=== PATIENT | male | born 1955 | race Caucasian/White ===

== ENCOUNTER 2017-04-10 21:01 | Observation (INO) | payer MEDICARE, MEDICAID ==
[~2017-04-10] VITALS: Ht 180.3 cm; Wt 95.5 kg
[~2017-04-10 21:01] MED LIST: ABIL5TAB6 PO; AMLO10 PO; BISA10R PR; CEFT2INJ IV; CHLOR25 PO; HYDR100T2 PO; LEXA10TA PO; ONDA4 PO; PANT20 PO; PHEN12.5 PO; PRAV20 PO; PROM25R PR; SENN-29 PO; SULF-154 PO; VITA200017 PO
[2017-04-10 21:03] VITALS: BP 190/82; PULSE 58; RESP 20; TEMP 98.7; O2SAT 98
--- NOTE | 2017-04-10 21:28 | PD ---
HPI Chief Complaint: vomiting Time Seen by Provider: 21:22 Travel History International Travel<30 days: No Contact w/Intl Traveler<30days: No History of Present Illness HPI Patient comes in by EMS from [facility] for reported nausea and vomiting per transfer form. EMS reported 3 coffee ground emesis en route. Patient states he's been vomiting for the past couple days. Patient denies any known blood in it. Denies any loss change in bowel or bladder. Patient complaining of epigastric abdominal pain is sharp like in nature without radiation. Patient denies anything making this better or worse. Patient denies anything like this in the past however was noted to have been here an March 2016 for similar. Patient is a poor historian thus limiting history of present illness. Patient has a history of peripheral vascular disease, type 2 diabetes, dementia, hypertension, bipolar, anemia, chronic kidney disease, hyperlipidemia, anxiety, schizophrenia, and muscle weakness. PFSH Past Medical History Anemia: Yes Bipolar Disorder: Yes Anxiety: Yes Depression: No Cancer: No Cardiovascular Problems: Yes (HYPERTENSION) Diabetes: Yes Endocrine: Yes Gastrointestinal Disorders: Yes (HX OF GI BLEEDS) GERD: No Genitourinary: No Hypertension: Yes Immune Disorder: No Musculoskeletal: No Neurologic: No Psychiatric: Yes (DENIES-PER H&P SCHIZOPHRENIA, BIPOLAR, AND ANXIETY) Reproductive: No Respiratory: No Schizophrenia: Yes Thyroid Disease: No Social History Alcohol Use: Yes (OCCASIONALLY) Tobacco Use: No Substance Use: No Allergies-Medications (Allergen,Severity, Reaction): Coded Allergies: *MDRO Multi-Drug Resistant Organism (Verified Adverse Reaction, Unknown, ) MRSA (urine) - 04/12/16 Reported Meds & Prescriptions Reported Meds & Active Scripts Active Reported Promethazine Supp (Promethazine HCl) 25 Mg Supp 25 Mg RECTAL Q8HR PRN Norvasc (Amlodipine Besylate) 10 Mg Tab 10 Mg PO DAILY Lexapro (Escitalopram Oxalate) 10 Mg Tab 10 Mg PO DAILY Senna-Tabs (Sennosides) 8.6 Mg Tab 8.6 Mg PO HS Protonix (Pantoprazole Sodium) 40 Mg Tab 40 Mg PO DAILY Hydralazine HCl 25 Mg Tablet 100 Mg PO TID D-2000 Maximum Strength (Cholecalciferol) 2,000 Unit Tab 4,000 Units PO DAILY Abilify (Aripiprazole) 2 Mg Tab 2.5 Mg PO DAILY Review of Systems ROS Limitations: Poor Historian Except as stated in HPI: all other systems reviewed are Neg Physical Exam Exam Limitations: Poor Historian Narrative GENERAL: Well-developed, well nourished, in no acute distress, and non-ill appearing. SKIN: Focused skin assessment warm and dry. HEAD: Atraumatic. Normocephalic. EYES: Pupils equal and round. EOMI. No scleral icterus. No injection or drainage. ENT: No nasal bleeding or discharge. Mucous membranes pink and moist. NECK: Trachea midline. Supple. No nuclear rigidity. CARDIOVASCULAR: Regular rate and rhythm. No murmur appreciated. RESPIRATORY: No accessory muscle use. No respiratory distress. Clear to auscultation. Breath sounds equal bilaterally. GASTROINTESTINAL: Abdomen soft, nondistended, and no guarding. Hepatic and splenic margins not palpable. Hypoactive bowel sounds 4. No pulsatile mass. Patient reports tenderness to palpation left lower quadrant and is palpable fecal debris. MUSCULOSKELETAL: No clubbing. No cyanosis. No edema. Patient moving bilateral upper extremities without difficulty. NEUROLOGICAL: Awake and alert. No obvious cranial nerve deficits. Motor grossly within normal limits. Normal speech. PSYCHIATRIC: Appropriate mood and affect. Data Data Last Documented VS Vital Signs Date Time Temp Pulse Resp B/P (MAP) Pulse Ox O2 Delivery O2 Flow Rate FiO2 04/11/17 00:11 58 18 157/68 (97) 100 Room Air 04/10/17 21:03 98.7 Orders Orders Complete Blood Count With Diff (04/10/17 21:17) Comprehensive Metabolic Panel (04/10/17 21:17) Lipase (04/10/17 21:17) Prothrombin Time / Inr (Pt) (04/10/17 21:17) Act Partial Throm Time (Ptt) (04/10/17 21:17) Urinalysis - C+S If Indicated (04/10/17 21:17) Type And Screen (04/10/17 21:17) Chest, Single Ap (04/10/17 21:17) Ecg Monitoring (04/10/17 21:17) Iv Access Insert/Monitor (04/10/17 21:17) Oximetry (04/10/17 21:17) Sodium Chloride 0.9% Flush (Ns Flush) (04/10/17 21:30) Pantoprazole Inj (Protonix Inj) (04/10/17 21:30) Pantoprazole Inj (Protonix Inj) (04/10/17 21:30) Ct Abd/Pel W/O Iv Contrast (04/10/17 ) NPO (04/10/17 21:17) Electrocardiogram (04/10/17 21:17) Ondansetron Inj (Zofran Inj) (04/10/17 22:00) Ondansetron Inj (Zofran Inj) (04/10/17 21:50) Bedside Glucose HEATHER.AC&HS (04/10/17 23:56) Blood Glucose Goal (Criteria) (04/10/17 23:56) Hypoglycemia 70 Mg/Dl Or < (04/10/17 23:56) Notify Dr: Other (04/10/17 23:56) Dextrose 50% In Monster (Vial) Inj (D50w (Vi (04/11/17 00:00) Glucagon Inj (Glucagon Inj) (04/11/17 00:00) Insulin Aspart Supplemtl Scale (Novolog (04/11/17 07:00) Place In Observation (04/10/17 ) Vital Signs (Adult) Q4H (04/10/17 23:56) Activity Oob With Assistance (04/10/17 23:56) Intake + Output HEATHER.QSHIFT (04/10/17 23:56) Sodium Chlor 0.9% 1000 Ml Inj (Ns 1000 M (04/10/17 23:56) Sodium Chloride 0.9% Flush (Ns Flush) (04/11/17 00:00) Sodium Chloride 0.9% Flush (Ns Flush) (04/11/17 09:00) Ondansetron Inj (Zofran Inj) (04/11/17 00:00) Comprehensive Metabolic Panel (04/11/17 06:00) Complete Blood Count With Diff (04/11/17 06:00) Case Management Consult (04/10/17 23:56) Scd Bilateral/Knee High HEATHER.BID (04/10/17 23:56) Colin Bilateral/Knee High HEATHER.QSHIFT (04/10/17 23:56) Acetaminophen (Tylenol) (04/11/17 00:00) Acetamin-Hydrocod 325-5 Mg (Barco 5-325 (04/11/17 00:00) Morphine Inj (Morphine Inj) (04/11/17 00:00) Docusate Sodium-Senna (Renetta-Colace) (04/11/17 09:00) Magnesium Hydroxide Liq (Milk Of Magnesi (04/11/17 00:00) Sennosides (Senokot) (04/11/17 00:00) Bisacodyl Supp (Dulcolax Supp) (04/11/17 00:00) Lactulose Liq (Lactulose Liq) (04/11/17 00:00) Diet 1800 Ada Cons Carb (04/11/17 Breakfast) Admit Order (Ed Use Only) (04/11/17 00:36) Labs Laboratory Tests Test 04/10/17 21:30 White Blood Count 9.4 TH/MM3 Red Blood Count 4.16 MIL/MM3 Hemoglobin 10.8 GM/DL Hematocrit 32.9 % Mean Corpuscular Volume 79.3 FL Mean Corpuscular Hemoglobin 26.1 PG Mean Corpuscular Hemoglobin Concent 32.9 % Red Cell Distribution Width 16.1 % Platelet Count 166 TH/MM3 Mean Platelet Volume 9.6 FL Neutrophils (%) (Auto) 88.3 % Lymphocytes (%) (Auto) 5.6 % Monocytes (%) (Auto) 5.9 % Eosinophils (%) (Auto) 0.0 % Basophils (%) (Auto) 0.2 % Neutrophils # (Auto) 8.3 TH/MM3 Lymphocytes # (Auto) 0.5 TH/MM3 Monocytes # (Auto) 0.6 TH/MM3 Eosinophils # (Auto) 0.0 TH/MM3 Basophils # (Auto) 0.0 TH/MM3 CBC Comment DIFF FINAL Differential Comment Prothrombin Time 11.7 SEC Prothromb Time International Ratio 1.1 RATIO Activated Partial Thromboplast Time 25.8 SEC Blood Urea Nitrogen 41 MG/DL Creatinine 2.63 MG/DL Random Glucose 172 MG/DL Total Protein 7.6 GM/DL Albumin 4.1 GM/DL Calcium Level 11.4 MG/DL Alkaline Phosphatase 96 U/L Aspartate Amino Transf (AST/SGOT) 13 U/L Alanine Aminotransferase (ALT/SGPT) 15 U/L Total Bilirubin 0.6 MG/DL Sodium Level 137 MEQ/L Potassium Level 4.0 MEQ/L Chloride Level 104 MEQ/L Carbon Dioxide Level 24.4 MEQ/L Anion Gap 9 MEQ/L Estimat Glomerular Filtration Rate 25 ML/MIN Lipase 97 U/L MDM Medical Decision Making Medical Screen Exam Complete: Yes Emergency Medical Condition: Yes Medical Record Reviewed: Yes Interpretation(s) EKG reviewed by Dr. Zuleta sinus rhythm with sinus arrhythmia. Ventricular rate of 60. No STEMI. Differential Diagnosis GI bleed, ileus, bowel obstruction, abdominal pain, intractable vomiting, aspiration pneumonia, electrolyte abnormality, other Narrative Course Patient was seen and examined. Initial laboratory neurological studies were ordered. Patient was given IV Zofran for nausea and started on Protonix. Patient signed out to Dr. Zuleta at the end of my shift. Please see her documentation for final diagnosis and disposition. HemaPrompt Point of Care Internal Pos. & Neg. Controls: Passed Fecal Specimen Occult Blood: Negative Gastric Specimen Occult Blood: Positive Comment Verbal consent was obtained. Digital rectal exam was performed. Stool specimen applied and test interpreted between 1 and 3 minutes of application and the result was negative. Internal Controls: Both positive and negative controls were validated. Staff Jeremiah Bernard was present during this exam. Vladimir Ascencio Apr 10, 2017 21:28
[2017-04-10] MEDS ORDERED: PANTOPRAZOLE INJ 80 MG in SODIUM CHLORIDE 0.9% INJ 35 ML IV ONE (21:30)
[2017-04-10] MEDS ORDERED: SODIUM CHLORIDE 0.9% FLUSH 10 ML FLUSH IVF PRN (21:30)
[2017-04-10] MEDS ORDERED: ONDANSETRON HCL 4 MG/2 ML VIAL ONE (21:50)
--- NOTE | 2017-04-10 21:55 | RADRPT ---
EXAM DATE/TIME: 04/10/2017 21:40 [facility] COMPARISON: CHEST SINGLE AP, April 12, 2016, 10:33. INDICATIONS : Shortness of breath and vomiting. MEDICAL HISTORY : None. SURGICAL HISTORY : None. ENCOUNTER: Initial ACUITY: 1 day PAIN SCORE: 0/10 LOCATION: chest FINDINGS: The lungs are clear without infiltrate, nodule, or mass. There is no appreciable pleural effusion fo r technique. Heart and mediastinum are unremarkable. CONCLUSION: No acute cardiopulmonary disease. Honey [place] MD on April 10, 2017 at 21:53 Board Certified Radiologist. This report was verified electronically.
[2017-04-10] MEDS ORDERED: ONDANSETRON HCL 4 MG/2 ML VIAL IV PUSH ONE (22:00)
[2017-04-10 22:01] LABS: AUTOMATED NEUTROPHIL # 8.3 TH/MM3 (1.8-7.7); BASOPHIL % 0.2 % (0.0-2.0); HEMATOCRIT 32.9 % (39.0-51.0); HEMO FLAGS DIFF FINAL; LYMPH % 5.6 % (9.0-44.0); LYMPHOCYTE # 0.5 TH/MM3 (1.0-4.8); MEAN CELL VOLUME 79.3 FL (80.0-100.0); MEAN CORPUSCULAR HEMOGLOBIN 26.1 PG (27.0-34.0); MEAN CORPUSCULAR HGB CONC 32.9 % (32.0-36.0); MONO % 5.9 % (0.0-8.0); NEUT % 88.3 % (16.0-70.0); PLATELET COUNT 166 TH/MM3 (150-450); RED BLOOD COUNT 4.16 MIL/MM3 (4.50-5.90); RED CELL DISTRIBUTION WIDTH 16.1 % (11.6-17.2); WHITE BLOOD COUNT 9.4 TH/MM3 (4.0-11.0)
[2017-04-10 22:10] LABS: APTT (PATIENT) 25.8 SEC (24.3-30.1); INTERNATIONAL NORMALIZED RATIO 1.1 RATIO; PROTHROMBIN TIME - PATIENT 11.7 SEC (9.8-11.6)
[2017-04-10 22:15] LABS: ANION GAP 9 MEQ/L (5-15); AST (GOT) 13 U/L (15-37); BICARBONATE 24.4 MEQ/L (21.0-32.0); BLOOD UREA NITROGEN 41 MG/DL (7-18); CHLORIDE 104 MEQ/L (98-107); GLOMERULAR FILTRATION RATE 25 ML/MIN (>89); SODIUM (NA) 137 MEQ/L (136-145)
[2017-04-10 22:17] LABS: ALT (GPT) 15 U/L (12-78)
[2017-04-10 22:19] LABS: ALKALINE PHOSPHATASE 96 U/L (45-117); TOTAL BILIRUBIN ADULT 0.6 MG/DL (0.2-1.0)
[2017-04-10] MEDS: PANTOPRAZOLE INJ 80 MG in SODIUM CHLORIDE 0.9% INJ 100 ML IV SCH (22:44)
--- NOTE | 2017-04-10 23:42 | RADRPT ---
EXAM DATE/TIME: 04/10/2017 23:12 [facility] COMPARISON: No previous studies available for comparison. INDICATIONS : Dark emesis x 3-4 today. ORAL CONTRAST: No oral contrast ingested. RADIATION DOSE: 8.60 CTDIvol (mGy) MEDICAL HISTORY : Diabetes mellitus type 2. Hypertension. Cardiovascular diseaseGI bleed. SURGICAL HISTORY : None. ENCOUNTER: Initial ACUITY: 1 day PAIN SCALE: 4/10 LOCATION: Bilateral abdomen TECHNIQUE: Volumetric scanning of the abdomen and pelvis was performed. Using automated exposure control and ad justment of the mA and/or kV according to patient size, radiation dose was kept as low as reasonably achievable to obtain optimal diagnostic quality images. DICOM format image data is available electro nically for review and comparison. FINDINGS: LOWER LUNGS: The visualized lower lungs are clear. Very small pericardial effusion anteriorly measuring approximat naomi 1 cm in depth. LIVER: Homogeneous density without lesion. There is no dilation of the biliary tree. No calcified gallston es. SPLEEN: Normal size without lesion. PANCREAS: Within normal limits. KIDNEYS: Normal in size and shape. Bilateral, multiple nonobstructing renal calculi measuring upwards at 7 mm in diameter. Dominant, 7.4 cm cyst anteriorly off the midpole of the left kidney. ADRENAL GLANDS: Within normal limits. VASCULAR: There is no aortic aneurysm. BOWEL/MESENTERY: Diverticular disease of the sigmoid without diverticulitis. Marked distention of the rectal vault wit h stool characteristic of fecal impaction. The vermiform appendix is identified and is radiographical ly normal. ABDOMINAL WALL: Within normal limits. RETROPERITONEUM: There is no lymphadenopathy. BLADDER: No wall thickening or mass. REPRODUCTIVE: Within normal limits. INGUINAL: There is no lymphadenopathy or hernia. MUSCULOSKELETAL: Hypodensity centrally at the musculotendinous junction of the iliacus and psoas muscles on the right. Bilateral pars fractures at L5. CONCLUSION: 1. Very small, anteriorly positioned pericardial effusion measuring 1 cm in depth. 2. Bilateral nonobstructing multiple renal calculi measuring up to 7 mm in diameter. 3. CT findings characteristic of rectal fecal impaction with a large amount of stool in the distended rectal vault. 4. Bilateral pars fractures at L5. 5. Central hypodensities at the musculotendinous junction of the iliacus and psoas muscles on the rig ht. Findings are nonspecific. Is there a recent history of trauma? If patient is diabetic, could cons ider muscular infarction. Brian Laguerre MD on April 10, 2017 at 23:31 Board Certified Radiologist. This report was verified electronically.
--- NOTE | 2017-04-10 23:50 | PD ---
Physical Exam Date Seen by Provider: Apr 10, 2017 Narrative This patient is a jail patient who is being evaluated for vomiting with reported coffee-ground emesis. Abdomen is diffusely tender with no guarding or rebound. Data Data Last Documented VS Vital Signs Date Time Temp Pulse Resp B/P Pulse Ox O2 Delivery O2 Flow Rate FiO2 04/10/17 21:36 Room Air 04/10/17 21:03 98.7 58 20 190/82 98 Orders Complete Blood Count With Diff (04/10/17 21:17) Comprehensive Metabolic Panel (04/10/17 21:17) Lipase (04/10/17 21:17) Prothrombin Time / Inr (Pt) (04/10/17 21:17) Act Partial Throm Time (Ptt) (04/10/17 21:17) Urinalysis - C+S If Indicated (04/10/17 21:17) Type And Screen (04/10/17 21:17) Chest, Single Ap (04/10/17 21:17) Ecg Monitoring (04/10/17 21:17) Iv Access Insert/Monitor (04/10/17 21:17) Oximetry (04/10/17 21:17) Sodium Chloride 0.9% Flush (Ns Flush) (04/10/17 21:30) Pantoprazole Inj (Protonix Inj) (04/10/17 21:30) Pantoprazole Inj (Protonix Inj) (04/10/17 21:30) Ct Abd/Pel W/O Iv Contrast (04/10/17 ) NPO (04/10/17 21:17) Electrocardiogram (04/10/17 21:17) Ondansetron Inj (Zofran Inj) (04/10/17 22:00) Ondansetron Inj (Zofran Inj) (04/10/17 21:50) Labs Laboratory Tests Test 04/10/17 21:30 White Blood Count 9.4 TH/MM3 Red Blood Count 4.16 MIL/MM3 Hemoglobin 10.8 GM/DL Hematocrit 32.9 % Mean Corpuscular Volume 79.3 FL Mean Corpuscular Hemoglobin 26.1 PG Mean Corpuscular Hemoglobin 32.9 % Concent Red Cell Distribution Width 16.1 % Platelet Count 166 TH/MM3 Mean Platelet Volume 9.6 FL Neutrophils (%) (Auto) 88.3 % Lymphocytes (%) (Auto) 5.6 % Monocytes (%) (Auto) 5.9 % Eosinophils (%) (Auto) 0.0 % Basophils (%) (Auto) 0.2 % Neutrophils # (Auto) 8.3 TH/MM3 Lymphocytes # (Auto) 0.5 TH/MM3 Monocytes # (Auto) 0.6 TH/MM3 Eosinophils # (Auto) 0.0 TH/MM3 Basophils # (Auto) 0.0 TH/MM3 CBC Comment DIFF FINAL Differential Comment Prothrombin Time 11.7 SEC Prothromb Time International 1.1 RATIO Ratio Activated Partial 25.8 SEC Thromboplast Time Sodium Level 137 MEQ/L Potassium Level 4.0 MEQ/L Chloride Level 104 MEQ/L Carbon Dioxide Level 24.4 MEQ/L Anion Gap 9 MEQ/L Blood Urea Nitrogen 41 MG/DL Creatinine 2.63 MG/DL Estimat Glomerular Filtration 25 ML/MIN Rate Random Glucose 172 MG/DL Calcium Level 11.4 MG/DL Total Bilirubin 0.6 MG/DL Aspartate Amino Transf 13 U/L (AST/SGOT) Alanine Aminotransferase 15 U/L (ALT/SGPT) Alkaline Phosphatase 96 U/L Total Protein 7.6 GM/DL Albumin 4.1 GM/DL Lipase 97 U/L Blood Type O POSITIVE Antibody Screen NEGATIVE MDM Supervised Visit with CHLOE: Yes Differential Diagnosis Differential diagnosis of abdominal pain includes but is not limited to gastritis, pancreatitis, hepatitis, gastroenteritis, gallbladder disease, constipation, urinary retention, UTI, peptic ulcer disease, diverticulitis or appendicitis Narrative Course This patient presented for abdominal pain associated with vomiting and coffee- ground emesis. The emesis was Gastroccult positive. CBC & BMP Diagram 04/10/17 21:30 CT: 1. Very small, anteriorly positioned pericardial effusion measuring 1 cm in depth. 2. Bilateral nonobstructing multiple renal calculi measuring up to 7 mm in diameter. 3. CT findings characteristic of rectal fecal impaction with a large amount of stool in the distended rectal vault. 4. Bilateral pars fractures at L5. 5. Central hypodensities at the musculotendinous junction of the iliacus and psoas muscles on the right. Findings are nonspecific. Is there a recent history of trauma? If patient is diabetic, could consider muscular infarction. This patient has had no further vomiting since being medicated in the emergency department. He does still have abdominal pain and tenderness. He does not have an acute abdomen. Diagnosis Primary Impression: Upper GI bleed Additional Impressions: Abdominal pain Qualified Code: R10.84 - Generalized abdominal pain Constipation Qualified Code: K59.00 - Constipation, unspecified constipation type Admitting Information Admitting Physician Requests: Observation Condition: Stable Cely Zuleta MD Apr 10, 2017 23:50
[2017-04-11] MEDS ORDERED: ONDANSETRON HCL 4 MG/2 ML VIAL IVP PRN
[2017-04-11] MEDS ORDERED: ACETAMINOPHEN/HYDROcodone 325 MG/5 MG TAB PO PRN
[2017-04-11] MEDS ORDERED: LACTULOSE SYRUP 20 GM/30 ML CUP PO PRN
[2017-04-11] MEDS ORDERED: SODIUM CHLORIDE 0.9% FLUSH 10 ML FLUSH IV FLUSH PRN
[2017-04-11] MEDS ORDERED: MAGNESIUM HYDROXIDE SUSP 30 ML CUP PO PRN
[2017-04-11] MEDS ORDERED: BISACODYL 10 MG SUPP RECTAL PRN
[2017-04-11] MEDS ORDERED: SENNOSIDES 8.6 MG TAB PO PRN
[2017-04-11] MEDS ORDERED: DEXTROSE 50% IN WATER 50 ML VIAL(D50) IV PRN
[2017-04-11] MEDS ORDERED: GLUCAGON 1 MG/ML VIAL OTHER PRN
[2017-04-11] MEDS ORDERED: ACETAMINOPHEN 325 MG TAB PO PRN
[2017-04-11] MEDS ORDERED: MORPHINE SULFATE 4 MG/ML INJ IV PRN
[2017-04-11 00:11] VITALS: BP 157/68; PULSE 58; RESP 18; O2SAT 100
[2017-04-11] MEDS: SODIUM CHLOR 0.9% 1000 ML INJ 1,000 ML IV SCH ×2 (00:33→12:30)
[2017-04-11] MEDS ORDERED: HYDR-3799 PO (00:49)
[2017-04-11] MEDS ORDERED: AMLO10 PO (00:49)
[2017-04-11] MEDS ORDERED: PROT40TA PO (00:49)
[2017-04-11] MEDS ORDERED: SENN8.6T36 PO (00:49)
[2017-04-11] MEDS ORDERED: D-20TAB3 PO (00:49)
[2017-04-11] MEDS ORDERED: LEXA10TA PO (00:49)
[2017-04-11] MEDS ORDERED: PROM1SUP9 RECTAL (00:49)
[2017-04-11] MEDS ORDERED: ABIL2TAB2 PO (00:49)
[2017-04-11 02:35] VITALS: BP 160/70; PULSE 58; RESP 18; TEMP 98.4; O2SAT 94
--- NOTE | 2017-04-11 02:53 | HHI.HP ---
[facility] Hernando Patel MD Admission Diagnosis UGI bleed, constipation Diagnoses: (1) Hematemesis Diagnosis: Principal (2) Constipation Diagnosis: Principal (3) Renal insufficiency Diagnosis: Principal (4) DM (diabetes mellitus) Diagnosis: Principal Travel History International Travel<30 Days: No Contact w/Intl Traveler <30 Da: No Traveled to Known Affected Are: No History of Present Illness This is a 61-year-old male with a PMH of HTN, Anxiety, Depression, Bipolar Disorder and h/o GI Bleed who was sent to the ER from [facility] for hematemesis. Pt reports generalized abdominal pain in addition to nausea, vomiting for approx 2-3 days. Per EMS, pt w/ few episodes of coffee-ground emesis en route. Denies fever, chills or diarrhea. On arrival, BP 190/82, HR 58, O2 sat 98% on RA, Afebrile. W WBC 10.8, previously 10.6 on 05/23/16. Labs otherwise at baseline, creatinine 2.63, previously 2.47 on 05/23/16. Started on Protonix gtt in ER. CXR with no acute findings. CT Abd/Pelvis w/ rectal fecal impaction with large amount of stool and distended rectal vault. Review of Systems Except as stated in HPI: all other systems reviewed are Neg ROS: 14 point review of systems otherwise negative. Past Family Social History Past Medical History PMH: HTN, Anxiety, Depression, Bipolar Disorder and h/o GI Bleed Past Surgical History PAST SURGICAL HISTORY: None Allergies: Coded Allergies: *MDRO Multi-Drug Resistant Organism (Verified Adverse Reaction, Unknown, ) MRSA (urine) - 04/12/16 Family History PAST FAMILY HISTORY: Reviewed. No h/o DM or CAD Social History PAST SOCIAL HISTORY: Occasional alcohol. Negative for tobacco or drugs. Physical Exam Vital Signs Vital Signs Date Time Temp Pulse Resp B/P Pulse Ox O2 Delivery O2 Flow Rate FiO2 04/11/17 00:11 58 18 157/68 100 Room Air 04/10/17 21:36 Room Air 04/10/17 21:03 98.7 58 20 190/82 98 Physical Exam PE: GENERAL: Middle-aged white male in no acute distress. HEENT: PERRLA, EOMI. No scleral icterus or conjunctival pallor. No lid lag or facial droop. CARDIOVASCULAR: Regular rate and rhythm. No obvious murmurs to auscultation. No chest tenderness to palpation. RESPIRATORY: No obvious rhonchi or wheezing. Clear to auscultation. Breath sounds equal bilaterally. GASTROINTESTINAL: Abdomen soft, mild tenderness to palpation LLQ, nondistended. BS normal. MUSCULOSKELETAL: Extremities without clubbing, cyanosis, or edema. No obvious deformities. NEUROLOGICAL: Awake, alert and oriented x4. No focal neurologic deficits. Moving both upper and lower extremities spontaneously. Laboratory Laboratory Tests Test 04/10/17 21:30 White Blood Count 9.4 Red Blood Count 4.16 Hemoglobin 10.8 Hematocrit 32.9 Mean Corpuscular Volume 79.3 Mean Corpuscular Hemoglobin 26.1 Mean Corpuscular Hemoglobin 32.9 Concent Red Cell Distribution Width 16.1 Platelet Count 166 Mean Platelet Volume 9.6 Neutrophils (%) (Auto) 88.3 Lymphocytes (%) (Auto) 5.6 Monocytes (%) (Auto) 5.9 Eosinophils (%) (Auto) 0.0 Basophils (%) (Auto) 0.2 Neutrophils # (Auto) 8.3 Lymphocytes # (Auto) 0.5 Monocytes # (Auto) 0.6 Eosinophils # (Auto) 0.0 Basophils # (Auto) 0.0 CBC Comment DIFF FINAL Differential Comment Prothrombin Time 11.7 Prothromb Time International 1.1 Ratio Activated Partial 25.8 Thromboplast Time Sodium Level 137 Potassium Level 4.0 Chloride Level 104 Carbon Dioxide Level 24.4 Anion Gap 9 Blood Urea Nitrogen 41 Creatinine 2.63 Estimat Glomerular Filtration 25 Rate Random Glucose 172 Calcium Level 11.4 Total Bilirubin 0.6 Aspartate Amino Transf 13 (AST/SGOT) Alanine Aminotransferase 15 (ALT/SGPT) Alkaline Phosphatase 96 Total Protein 7.6 Albumin 4.1 Lipase 97 Blood Type O POSITIVE Antibody Screen NEGATIVE Result Diagram: 04/10/17212904/10/172129 Assessment and Plan Problem List: (1) Hematemesis ICD Code: K92.0 Status: Acute (2) Constipation ICD Code: K59.00 Status: Acute (3) Renal insufficiency ICD Code: N28.9 Status: Acute (4) DM (diabetes mellitus) ICD Code: E11.9 Status: Acute Assessment and Plan A/P: 1. Hematemesis: h/o GI Bleed, multiple episodes of nausea/vomiting w/ coffee- ground emesis, Hgb 10.8, previously 10.6 on 05/23/16. On Protonix gtt, will continue, repeat Hgb/Hct in am. Consult GI for further eval as needed. 2. Constipation: CT Abd/Pelvis w/ rectal fecal impaction with large amount of stool nondistended rectal vault, images reviewed by me. IVF, suppository/enema as needed. 3. Renal Insufficiency: Acute on Chronic. Creatinine 2.63, previously 2.47 on 05/23/16, IVF, repeat labs in am. 4. DM: Sliding scale w/ Accu-Cheks. Not on home medications, check Hgb A1c. 5. DVT Prophylaxis: Pharmacologic contraindication secondary to Upper GI Bleed 6. Social work for d/c planning as needed. 7. Case discussed w/ ER physician at length. Problem Qualifiers (1) Constipation: Qualified Code: K59.00 - Constipation, unspecified constipation type Margarita Olmedo MD Apr 11, 2017 02:53
[2017-04-11 05:47] LABS: AUTOMATED NEUTROPHIL # 7.4 TH/MM3 (1.8-7.7); BASOPHIL % 0.2 % (0.0-2.0); HEMATOCRIT 29.5 % (39.0-51.0); HEMO FLAGS DIFF FINAL; LYMPH % 9.5 % (9.0-44.0); LYMPHOCYTE # 0.9 TH/MM3 (1.0-4.8); MEAN CELL VOLUME 78.5 FL (80.0-100.0); MEAN CORPUSCULAR HEMOGLOBIN 26.1 PG (27.0-34.0); MEAN CORPUSCULAR HGB CONC 33.2 % (32.0-36.0); MONO % 8.9 % (0.0-8.0); NEUT % 81.4 % (16.0-70.0); PLATELET COUNT 151 TH/MM3 (150-450); RED BLOOD COUNT 3.75 MIL/MM3 (4.50-5.90); RED CELL DISTRIBUTION WIDTH 16.6 % (11.6-17.2); WHITE BLOOD COUNT 9.1 TH/MM3 (4.0-11.0)
[2017-04-11 06:25] LABS: BICARBONATE 27.6 MEQ/L (21.0-32.0); POTASSIUM 4.1 MEQ/L (3.5-5.1); TOTAL BILIRUBIN ADULT 0.6 MG/DL (0.2-1.0)
[2017-04-11] MEDS: INSULIN ASPART SUPPLEMENTAL SCALE SQ SCH ×4 (06:30→21:05)
[2017-04-11 07:02] LABS: CALCIUM-PROTEIN CORRECTED 11.8 MG/DL (8.5-10.1)
[2017-04-11 07:56] VITALS: BP 180/77; PULSE 55; RESP 20; TEMP 97.9; O2SAT 96
[2017-04-11] MEDS: DOCUSATE SODIUM 50 MG/SENNA 8.6 MG TAB PO SCH ×2 (09:00→21:03)
[2017-04-11] MEDS: SODIUM CHLORIDE 0.9% FLUSH 10 ML FLUSH IV FLUSH SCH ×2 (09:00→21:03)
[2017-04-11] MEDS: ESCITALOPRAM OXALATE 10 MG TAB PO SCH (09:00)
[2017-04-11] MEDS: hydrALAZINE HCL 100 MG TAB PO SCH ×3 (09:00→18:17)
[2017-04-11] MEDS: ARIPiprazole 5 MG TAB PO SCH (09:00)
[2017-04-11 10:58] LABS: HEMOGLOBIN A1a 0.9 %; HEMOGLOBIN A1b 2.1 %; HEMOGLOBIN Ao 83.7 %; HEMOGLOBIN LA1C 2.5 %; HEMOGLOBIN P3 4.3 %
[2017-04-11 11:00] VITALS: BP 138/73; PULSE 64; RESP 17; TEMP 98.4; O2SAT 98
[2017-04-11] MEDS ORDERED: SOD PHOSPHATE/SOD BIPHOSPHATE (ADULT) ENEMA 133ML ONE (11:09)
[2017-04-11] MEDS: PANTOPRAZOLE INJ 80 MG in SODIUM CHLORIDE 0.9% INJ 100 ML IV SCH (12:30)
--- NOTE | 2017-04-11 13:56 | HHI.PR ---
Subjective Remarks Patient seen at 8:30am. Follow up for hematemesis. The patient is an extremely poor historian, only oriented to person, initially says he's in [place], then later remembers that he lives in [place], [place]; states the year is 2013. He denies any further nausea/vomiting since his arrival. Denies any abdominal pain. He cannot remember his last bowel movement. He states he does have an appetite and wants to eat. He does not believe he takes any NSAIDs. Objective Vitals Vital Signs Date Time Temp Pulse Resp B/P (MAP) Pulse Ox O2 Delivery O2 Flow Rate FiO2 04/11/17 07:56 97.9 55 20 180/77 (111) 96 04/11/17 02:35 98.4 58 18 160/70 (100) 94 04/11/17 00:11 58 18 157/68 (97) 100 Room Air 04/10/17 21:36 Room Air 04/10/17 21:03 98.7 58 20 190/82 (118) 98 I/O 04/10/17 04/10/17 04/10/17 04/11/17 04/11/17 04/11/17 07:00 15:00 23:00 07:00 15:00 23:00 Intake Total 900 ml Balance 900 ml Intake IV Total 900 ml Result Diagram: 04/11/17 0452 04/11/17 0452 Imaging Last Impressions Chest X-Ray 04/10/177 Signed Impressions: Service Date/Time: Monday, April 10, 2017 21:40 - CONCLUSION: No acute cardiopulmonary disease. Honey Grove MD Abdomen/Pelvis CT 04/10/17 0000 Signed Impressions: Service Date/Time: Monday, April 10, 2017 23:12 - CONCLUSION: 1. Very small, anteriorly positioned pericardial effusion measuring 1 cm in depth. 2. Bilateral nonobstructing multiple renal calculi measuring up to 7 mm in diameter. 3. CT findings characteristic of rectal fecal impaction with a large amount of stool in the distended rectal vault. 4. Bilateral pars fractures at L5. 5. Central hypodensities at the musculotendinous junction of the iliacus and psoas muscles on the right. Findings are nonspecific. Is there a recent history of trauma? If patient is diabetic, could consider muscular infarction. Brian Laguerre MD Objective Remarks GENERAL: Well-nourished, well-developed pleasantly confused elderly male patient in NAD. SKIN: Warm and dry. No rash. HEENT: Normocephalic. Atraumatic. Pupils equal and round. Mucous membranes pink and moist. NECK: Supple. Trachea midline. CARDIOVASCULAR: Regular rate and rhythm. S1, S2 noted. No murmur appreciated. RESPIRATORY: No accessory muscle use. Clear to auscultation. Breath sounds equal bilaterally. GASTROINTESTINAL: Abdomen soft, non-tender, nondistended. Normoactive bowel sounds x4. MUSCULOSKELETAL: No obvious deformities. Extremities without clubbing, cyanosis , or edema. NEUROLOGICAL: Awake and alert. No obvious cranial nerve deficits. Motor grossly within normal limits. Normal speech. PSYCHIATRIC: Appropriate mood and affect; insight and judgment limited. Medications and IVs Current Medications Medications (Trade) Dose Ordered Sig/Rachel Route Start Time Stop Time Status Last Admin (NS Flush) 2 ml UNSCH PRN IVF 04/10/17 21:30 Pantoprazole Sodium 80 mg/ Sodium Chloride 100 ml @ 10 mls/hr Q10H IV 04/10/17 21:30 04/11/17 12:30 (D50w (Vial) Inj) 50 ml UNSCH PRN IV 04/11/17 00:00 (Glucagon Inj) 1 mg UNSCH PRN OTHER 04/11/17 00:00 (NovoLOG SUPPLEMENTAL SCALE) 1 ACHS SLIDING SCALE SQ 04/11/17 07:00 Sodium Chloride 1,000 ml @ 100 mls/hr Q10H IV 04/10/17 23:56 04/11/17 00:33 (NS Flush) 2 ml UNSCH PRN IV FLUSH 04/11/17 00:00 (NS Flush) 2 ml BID IV FLUSH 04/11/17 09:00 (Zofran Inj) 4 mg Q6H PRN IVP 04/11/17 00:00 (Tylenol) 650 mg Q6H PRN PO 04/11/17 00:00 ([place] 5-325 Mg) 1 tab Q4H PRN PO 04/11/17 00:00 (Morphine Inj) 2 mg Q3H PRN IV 04/11/17 00:00 (Renetta-Colace) 1 tab BID PO 04/11/17 09:00 (Milk Of Magnesia Liq) 30 ml Q12H PRN PO 04/11/17 00:00 (Senokot) 17.2 mg Q12H PRN PO 04/11/17 00:00 (Dulcolax Supp) 10 mg DAILY PRN RECTAL 04/11/17 00:00 (Lactulose Liq) 30 ml DAILY PRN PO 04/11/17 00:00 (Norvasc) 10 mg DAILY PO 04/11/17 09:00 (Abilify) 2.5 mg DAILY PO 04/11/17 09:00 (Lexapro) 10 mg DAILY PO 04/11/17 09:00 (Apresoline) 100 mg TID PO 04/11/17 09:00 A/P Problem List: (1) Hematemesis ICD Code: K92.0 - Hematemesis Status: Acute (2) Constipation ICD Code: K59.00 - Constipation, unspecified Status: Acute (3) Renal insufficiency ICD Code: N28.9 - Disorder of kidney and ureter, unspecified Status: Acute (4) DM (diabetes mellitus) ICD Code: E11.9 - Type 2 diabetes mellitus without complications Status: Acute Assessment and Plan 61-year-old male with a PMH of HTN, Anxiety, Depression, Bipolar Disorder and h/ o GI Bleed who was sent to the ER from [facility] for hematemesis. Hematemesis: h/o GI Bleed, multiple episodes of nausea/vomiting w/ coffee- ground emesis, Hgb 10.8, previously 10.6 on 05/23/16. On Protonix gtt, will continue, repeat Hgb 9.8. Consult GI, plan for EGD in the am. Fecal Impaction/Constipation: CT Abd/Pelvis w/ rectal fecal impaction with large amount of stool nondistended rectal vault, images reviewed by me. Give IVF. Give fleet enema x1. Monitor for BM. Acute on Chronic Renal Insufficiency: Creatinine 2.63, previously 2.47 on , IVF, repeat labs show slight worsening. Avoid nephrotoxins. Monitor BMP. DM: Sliding scale w/ Accu-Cheks. Not on home medications, Hgb A1c 6.1. DVT Prophylaxis: teds/SCDs. Pharmacologic contraindication secondary to Upper GI Bleed Discharge Planning Possible discharge tomorrow after EGD if no further bleeding and cleared by GI. Problem Qualifiers (1) Constipation: Lauren Diane PA-C Apr 11, 2017 1:56 pm
--- NOTE | 2017-04-11 16:07 | EKG ---
Date Performed: 04/10/2017 Time Performed: 21:46:58 PTAGE: 61 years EKG: Sinus rhythm WITH SINUS ARRHYTHMIA WITH FIRST DEGREE AV BLOCK Compared to previous tracing, AK interval is slight ly longer, otherwise no significant change ABNORMAL ECG PREVIOUS TRACING : 04/12/2016 11.01 DOCTOR: Milan June Interpretating Date/Time 04/11/2017 16:06:15
--- NOTE | 2017-04-11 17:06 | PD.CONS ---
HPI History of Present Illness This is a 61 year old PMH of HTN, Anxiety, Depression, Bipolar Disorder and h/ o GI Bleed who was sent to the ER from [facility] for coffee ground emesis. Patient is poor historian. This is on going for approx 2-3 days. Pt reports associated generalized abdominal pain. Per EMS, pt w/ few episodes of coffee-ground emesis on the route. Denies fever, chills or diarrhea , melena or hematochezia. On arrival, hgb 10.8, previously 10.6 on 05/23/16, today there is a drop 9.8. Started on Protonix gtt in ER. CXR with no acute findings. CT Abd/Pelvis w/ rectal fecal impaction with large amount of stool and distended rectal vault. Not sure if he ever had colonoscopy. Our records showed he had EGD for coffee ground emesis on (04/21/16) ---> severe esophagitis with esophageal ulcerations, bx showed acute esophagitis with features of ulceration. He was recommended a repeat in 2 months but this wasn't done. He denies alcohol or NSAIDs (Kang Titus) PFSH Past Medical History PMH: HTN, Anxiety, Depression, Bipolar Disorder and h/o GI Bleed Past Surgical History PAST SURGICAL HISTORY: EGD (Kang Titus) Coded Allergies: *MDRO Multi-Drug Resistant Organism (Verified Adverse Reaction, Unknown, ) MRSA (urine) - 04/12/16 Medications Current Medications Medications (Trade) Dose Ordered Sig/Rachel Route Start Time Stop Time Status Last Admin (NS Flush) 2 ml UNSCH PRN IVF 04/10/17 21:30 Pantoprazole Sodium 80 mg/ Sodium Chloride 100 ml @ 10 mls/hr Q10H IV 04/10/17 21:30 04/11/17 12:30 (D50w (Vial) Inj) 50 ml UNSCH PRN IV 04/11/17 00:00 (Glucagon Inj) 1 mg UNSCH PRN OTHER 04/11/17 00:00 (NovoLOG SUPPLEMENTAL SCALE) 1 ACHS SLIDING SCALE SQ 04/11/17 07:00 Sodium Chloride 1,000 ml @ 100 mls/hr Q10H IV 04/10/17 23:56 04/11/17 12:30 (NS Flush) 2 ml UNSCH PRN IV FLUSH 04/11/17 00:00 (NS Flush) 2 ml BID IV FLUSH 04/11/17 09:00 04/11/17 09:00 (Zofran Inj) 4 mg Q6H PRN IVP 04/11/17 00:00 (Tylenol) 650 mg Q6H PRN PO 04/11/17 00:00 ([place] 5-325 Mg) 1 tab Q4H PRN PO 04/11/17 00:00 (Morphine Inj) 2 mg Q3H PRN IV 04/11/17 00:00 (Renetta-Colace) 1 tab BID PO 04/11/17 09:00 04/11/17 09:00 (Milk Of Magnesia Liq) 30 ml Q12H PRN PO 04/11/17 00:00 (Senokot) 17.2 mg Q12H PRN PO 04/11/17 00:00 (Dulcolax Supp) 10 mg DAILY PRN RECTAL 04/11/17 00:00 (Lactulose Liq) 30 ml DAILY PRN PO 04/11/17 00:00 (Norvasc) 10 mg DAILY PO 04/11/17 09:00 04/11/17 09:00 (Abilify) 2.5 mg DAILY PO 04/11/17 09:00 04/11/17 09:00 (Lexapro) 10 mg DAILY PO 04/11/17 09:00 04/11/17 09:00 (Apresoline) 100 mg TID PO 04/11/17 09:00 04/11/17 12:15 (Fleets Enema (Adult)) 133 ml DAILY@0600 RECTAL 04/12/17 06:00 04/12/17 06:01 Family History Non contributory Social History PAST SOCIAL HISTORY: Occasional alcohol. Negative for tobacco or drugs. (Kang Titus) Review of Systems Constitutional: COMPLAINS OF: Fatigue, Change in appetite Endocrine: DENIES: Polyuria Eyes: DENIES: Double Vision Ears, nose, mouth, throat: DENIES: Hoarseness Respiratory: DENIES: Shortness of breath Cardiovascular: DENIES: Lower Extremity Edema Gastrointestinal: COMPLAINS OF: Abdominal pain, Nausea, Vomiting, Hematemesis, DENIES: Black stools, Bloody stools, Constipation, Diarrhea, Difficulty Swallowing, Anorexia, Odynophagia, Swelling of Abdomen, Heartburn Genitourinary: DENIES: Hematuria Musculoskeletal: DENIES: Back pain Integumentary: DENIES: Jaundice Immunologic/allergic: DENIES: Eczema Neurologic: DENIES: Abnormal gait Psychiatric: DENIES: Anxiety (Kang Titus) GI Exam Vitals I&O Vital Signs Date Time Temp Pulse Resp B/P (MAP) Pulse Ox O2 Delivery O2 Flow Rate FiO2 04/11/17 11:00 98.4 64 17 138/73 (94) 98 04/11/17 07:56 97.9 55 20 180/77 (111) 96 04/11/17 02:35 98.4 58 18 160/70 (100) 94 04/11/17 00:11 58 18 157/68 (97) 100 Room Air 04/10/17 21:36 Room Air 04/10/17 21:03 98.7 58 20 190/82 (118) 98 I/O 04/10/17 04/10/17 04/10/17 04/11/17 04/11/17 04/11/17 07:00 15:00 23:00 07:00 15:00 23:00 Intake Total 1121 ml Balance 1121 ml Intake Oral 221 ml IV Total 900 ml # Voids 2 # Bowel Movements 1 Imaging Last Impressions Chest X-Ray 04/10/172116 Signed Impressions: Service Date/Time: Monday, April 10, 2017 21:40 - CONCLUSION: No acute cardiopulmonary disease. Honey Grove MD Abdomen/Pelvis CT 04/10/17 0000 Signed Impressions: Service Date/Time: Monday, April 10, 2017 23:12 - CONCLUSION: 1. Very small, anteriorly positioned pericardial effusion measuring 1 cm in depth. 2. Bilateral nonobstructing multiple renal calculi measuring up to 7 mm in diameter. 3. CT findings characteristic of rectal fecal impaction with a large amount of stool in the distended rectal vault. 4. Bilateral pars fractures at L5. 5. Central hypodensities at the musculotendinous junction of the iliacus and psoas muscles on the right. Findings are nonspecific. Is there a recent history of trauma? If patient is diabetic, could consider muscular infarction. Brian Laguerre MD Laboratory Test 04/10/17 21:30 04/11/17 04:52 White Blood Count 9.4 TH/MM3 9.1 TH/MM3 Red Blood Count 4.16 MIL/MM3 3.75 MIL/MM3 Hemoglobin 10.8 GM/DL 9.8 GM/DL Hematocrit 32.9 % 29.5 % Mean Corpuscular Volume 79.3 FL 78.5 FL Mean Corpuscular Hemoglobin 26.1 PG 26.1 PG Mean Corpuscular Hemoglobin Concent 32.9 % 33.2 % Red Cell Distribution Width 16.1 % 16.6 % Platelet Count 166 TH/MM3 151 TH/MM3 Mean Platelet Volume 9.6 FL 9.8 FL Neutrophils (%) (Auto) 88.3 % 81.4 % Lymphocytes (%) (Auto) 5.6 % 9.5 % Monocytes (%) (Auto) 5.9 % 8.9 % Eosinophils (%) (Auto) 0.0 % 0.0 % Basophils (%) (Auto) 0.2 % 0.2 % Neutrophils # (Auto) 8.3 TH/MM3 7.4 TH/MM3 Lymphocytes # (Auto) 0.5 TH/MM3 0.9 TH/MM3 Monocytes # (Auto) 0.6 TH/MM3 0.8 TH/MM3 Eosinophils # (Auto) 0.0 TH/MM3 0.0 TH/MM3 Basophils # (Auto) 0.0 TH/MM3 0.0 TH/MM3 CBC Comment DIFF FINAL DIFF FINAL Differential Comment Prothrombin Time 11.7 SEC Prothromb Time International Ratio 1.1 RATIO Activated Partial Thromboplast Time 25.8 SEC Blood Urea Nitrogen 41 MG/DL 42 MG/DL Creatinine 2.63 MG/DL 2.85 MG/DL Random Glucose 172 MG/DL 144 MG/DL Total Protein 7.6 GM/DL 7.0 GM/DL Albumin 4.1 GM/DL 3.8 GM/DL Calcium Level 11.4 MG/DL 11.7 MG/DL Alkaline Phosphatase 96 U/L 85 U/L Aspartate Amino Transf (AST/SGOT) 13 U/L 8 U/L Alanine Aminotransferase (ALT/SGPT) 15 U/L 12 U/L Total Bilirubin 0.6 MG/DL 0.6 MG/DL Sodium Level 137 MEQ/L 140 MEQ/L Potassium Level 4.0 MEQ/L 4.1 MEQ/L Chloride Level 104 MEQ/L 105 MEQ/L Carbon Dioxide Level 24.4 MEQ/L 27.6 MEQ/L Anion Gap 9 MEQ/L 7 MEQ/L Estimat Glomerular Filtration Rate 25 ML/MIN 23 ML/MIN Lipase 97 U/L Hemoglobin A1c 6.1 % Protein Corrected Calcium 11.8 MG/DL Physical Examination HEENT: normocephalic; atraumatic; no jaundice. NECK: Neck is supple, no JVD, no lymphadenopathy. CHEST: Chest is clear to auscultation and percussion. CARDIAC: Regular rate and rhythm with no murmur gallop or rubs. ABDOMEN: Soft, nondistended, nontender; no hepatosplenomegaly; bowel sounds are present in all four quadrants. EXTREMITIES: No clubbing, cyanosis, or edema. SKIN: Normal; no rash; no jaundice. CUTTER V GROOVE: No focal deficits; alert and oriented times three. (Kang Titus) Assessment and Plan Plan - Coffee ground emesis, N/V X 2 days/ anemia- with hx of gi bleed and esophageal ulceration, no emesis today On arrival, hgb 10.8, previously 10.6 on 05/23/16, today there is a drop 9.8. Started on Protonix gtt in ER. CT Abd/Pelvis w/ rectal fecal impaction with large amount of stool and distended rectal vault. Not sure if he ever had colonoscopy. Our records showed he had EGD for coffee ground emesis on (04/21/16) ---> severe esophagitis with esophageal ulcerations, bx showed acute esophagitis with features of ulceration. He was recommended a repeat in 2 months but this wasn't done. He denies alcohol or NSAIDs - Constipation- CT Abd/Pelvis w/ rectal fecal impaction with large amount of stool nondistended rectal vault - Renal Insufficiency: Acute on Chronic. - DM per attending Plan: - Regular diet - EGD in the am - NPO mn - Obtain consents - Cont PPI - Monitor hh - Transfuse as needed - Fleet enema X 2 - He has laxatives PRN, discussed with nurse to give daily and to hold for diarrhea - Patient will need colonoscopy but this could be done as an OP - Supportive care - Patient seen and examined by Dr. Spain and myself and this note is written on his behalf. (Kang Titus) Physician Comments Seen and examined, plan as above. (Shawna Spain MD) Kang Titus Apr 11, 2017 17:06 Shawna Spain MD Apr 12, 2017 09:23
[2017-04-11 19:43] VITALS: BP 120/56; PULSE 56; RESP 18; TEMP 98.1; O2SAT 96
[2017-04-11 23:51] VITALS: BP 141/65; PULSE 52; RESP 18; TEMP 98.3; O2SAT 94
[2017-04-12] MEDS: PANTOPRAZOLE INJ 80 MG in SODIUM CHLORIDE 0.9% INJ 100 ML IV SCH (03:08)
[2017-04-12] MEDS: SODIUM CHLOR 0.9% 1000 ML INJ 1,000 ML IV SCH (04:21)
[2017-04-12 04:59] VITALS: BP 158/69; PULSE 53; RESP 18; TEMP 98.6; O2SAT 96
[2017-04-12 05:52] LABS: AUTOMATED NEUTROPHIL # 4.9 TH/MM3 (1.8-7.7); BASOPHIL % 0.3 % (0.0-2.0); EOSINOPHIL % 0.5 % (0.0-4.0); HEMATOCRIT 28.1 % (39.0-51.0); HEMO FLAGS DIFF FINAL; LYMPH % 15.2 % (9.0-44.0); MEAN CELL VOLUME 79.2 FL (80.0-100.0); MEAN CORPUSCULAR HEMOGLOBIN 25.6 PG (27.0-34.0); MEAN CORPUSCULAR HGB CONC 32.3 % (32.0-36.0); PLATELET COUNT 152 TH/MM3 (150-450); RED BLOOD COUNT 3.55 MIL/MM3 (4.50-5.90); RED CELL DISTRIBUTION WIDTH 16.7 % (11.6-17.2); WHITE BLOOD COUNT 6.8 TH/MM3 (4.0-11.0)
[2017-04-12] MEDS ORDERED: SOD PHOSPHATE/SOD BIPHOSPHATE (ADULT) ENEMA 133ML RECTAL SCH (06:00)
[2017-04-12 06:37] LABS: BICARBONATE 25.6 MEQ/L (21.0-32.0); POTASSIUM 3.9 MEQ/L (3.5-5.1)
[2017-04-12] MEDS: INSULIN ASPART SUPPLEMENTAL SCALE SQ SCH ×4 (07:00→21:04)
[2017-04-12 07:35] VITALS: BP 180/81; PULSE 53; RESP 17; TEMP 98.2; O2SAT 96
--- NOTE | 2017-04-12 08:15 | HHI.PR ---
Subjective Remarks Follow up for hematemesis, fecal impaction. The patient reports no further nausea/vomiting since his arrival. He tolerated oral intake yesterday. He had a small BM yesterday then RN reported very large BM this morning. The patient denies any abdominal pain. He is going for EGD today. Objective Vitals Vital Signs Date Time Temp Pulse Resp B/P (MAP) Pulse Ox O2 Delivery O2 Flow Rate FiO2 04/12/17 07:35 98.2 53 17 180/81 (114) 96 04/12/17 04:59 98.6 53 18 158/69 (98) 96 04/11/17 23:51 98.3 52 18 141/65 (90) 94 04/11/17 19:43 98.1 56 18 120/56 (77) 96 04/11/17 11:00 98.4 64 17 138/73 (94) 98 I/O 04/11/17 04/11/17 04/11/17 04/12/17 04/12/17 04/12/17 07:00 15:00 23:00 07:00 15:00 23:00 Intake Total 1121 ml 2125 ml Balance 1121 ml 2125 ml Intake Oral 221 ml 230 ml IV Total 900 ml 1895 ml # Voids 2 1 # Bowel Movements 1 Result Diagram: 04/12/17 0534 04/12/17 0534 Imaging Last Impressions Chest X-Ray 04/10/172116 Signed Impressions: Service Date/Time: Monday, April 10, 2017 21:40 - CONCLUSION: No acute cardiopulmonary disease. Honey Grove MD Abdomen/Pelvis CT 04/10/17 0000 Signed Impressions: Service Date/Time: Monday, April 10, 2017 23:12 - CONCLUSION: 1. Very small, anteriorly positioned pericardial effusion measuring 1 cm in depth. 2. Bilateral nonobstructing multiple renal calculi measuring up to 7 mm in diameter. 3. CT findings characteristic of rectal fecal impaction with a large amount of stool in the distended rectal vault. 4. Bilateral pars fractures at L5. 5. Central hypodensities at the musculotendinous junction of the iliacus and psoas muscles on the right. Findings are nonspecific. Is there a recent history of trauma? If patient is diabetic, could consider muscular infarction. Brian Laguerre MD Objective Remarks GENERAL: Well-nourished, well-developed pleasantly confused elderly male patient in NAD. SKIN: Warm and dry. No rash. HEENT: Normocephalic. Atraumatic. Pupils equal and round. Mucous membranes pink and moist. CARDIOVASCULAR: Regular rate and rhythm. S1, S2 noted. No murmur appreciated. RESPIRATORY: No accessory muscle use. Clear to auscultation. Breath sounds equal bilaterally. GASTROINTESTINAL: Abdomen soft, non-tender, nondistended. Normoactive bowel sounds x4. MUSCULOSKELETAL: No obvious deformities. Extremities without clubbing, cyanosis , or edema. NEUROLOGICAL: Awake and alert. No obvious cranial nerve deficits. Motor grossly within normal limits. Normal speech. PSYCHIATRIC: Appropriate mood and affect; insight and judgment limited. Medications and IVs Current Medications Medications (Trade) Dose Ordered Sig/Rachel Route Start Time Stop Time Status Last Admin (NS Flush) 2 ml UNSCH PRN IVF 04/10/17 21:30 (D50w (Vial) Inj) 50 ml UNSCH PRN IV 04/11/17 00:00 (Glucagon Inj) 1 mg UNSCH PRN OTHER 04/11/17 00:00 (NovoLOG SUPPLEMENTAL SCALE) 1 ACHS SLIDING SCALE SQ 04/11/17 07:00 04/11/17 21:05 (NS Flush) 2 ml UNSCH PRN IV FLUSH 04/11/17 00:00 (NS Flush) 2 ml BID IV FLUSH 04/11/17 09:00 04/11/17 21:03 (Zofran Inj) 4 mg Q6H PRN IVP 04/11/17 00:00 (Tylenol) 650 mg Q6H PRN PO 04/11/17 00:00 ([place] 5-325 Mg) 1 tab Q4H PRN PO 04/11/17 00:00 (Morphine Inj) 2 mg Q3H PRN IV 04/11/17 00:00 (Renetta-Colace) 1 tab BID PO 04/11/17 09:00 04/12/17 08:23 (Milk Of Magnesia Liq) 30 ml Q12H PRN PO 04/11/17 00:00 (Senokot) 17.2 mg Q12H PRN PO 04/11/17 00:00 04/11/17 18:23 (Dulcolax Supp) 10 mg DAILY PRN RECTAL 04/11/17 00:00 (Lactulose Liq) 30 ml DAILY PRN PO 04/11/17 00:00 (Norvasc) 10 mg DAILY PO 04/11/17 09:00 04/12/17 08:23 (Abilify) 2.5 mg DAILY PO 04/11/17 09:00 04/12/17 08:23 (Lexapro) 10 mg DAILY PO 04/11/17 09:00 04/12/17 08:23 (Apresoline) 100 mg TID PO 04/11/17 09:00 04/12/17 08:23 Potassium Chloride/Dextrose/ Sod Cl 1,000 ml @ 100 mls/hr Q10H IV 04/12/17 10:25 UNV (Protonix Inj) 40 mg Q12H IV PUSH 04/12/17 21:00 UNV A/P Problem List: (1) Hematemesis ICD Code: K92.0 - Hematemesis Status: Acute (2) Constipation ICD Code: K59.00 - Constipation, unspecified Status: Acute (3) Renal insufficiency ICD Code: N28.9 - Disorder of kidney and ureter, unspecified Status: Acute (4) DM (diabetes mellitus) ICD Code: E11.9 - Type 2 diabetes mellitus without complications Status: Acute Assessment and Plan 61-year-old male with a PMH of HTN, Anxiety, Depression, Bipolar Disorder and h/ o GI Bleed who was sent to the ER from [facility] for hematemesis. Hematemesis: h/o GI Bleed, multiple episodes of nausea/vomiting w/ coffee- ground emesis, Hgb 10.8, previously 10.6 on 05/23/16. Started on Protonix gtt, no further hematemesis, change to IV protonix bid. Serial Hgb 10.8 --> 9.8 --> 9.1. Consulted GI, plan for EGD today. Fecal Impaction/Constipation: CT Abd/Pelvis w/ rectal fecal impaction with large amount of stool nondistended rectal vault, images reviewed by me. Give IVF. Given fleet enema x1. Patient had very large BM, much relieved. CKD, stage IV: Creatinine 2.63, previously 2.47 on 05/23/16, IVF, repeat labs show slight worsening. Avoid nephrotoxins. Monitor BMP. DM: Sliding scale w/ Accu-Cheks. Not on home medications, Hgb A1c 6.1. DVT Prophylaxis: teds/SCDs. Pharmacologic contraindication secondary to Upper GI Bleed Discharge Planning Possible discharge later today after EGD if no further bleeding and cleared by GI. Problem Qualifiers (1) Constipation: Lauren Diane PA-C Apr 12, 2017 08:15
[2017-04-12] MEDS: DOCUSATE SODIUM 50 MG/SENNA 8.6 MG TAB PO SCH ×2 (08:23→20:53)
[2017-04-12] MEDS: ESCITALOPRAM OXALATE 10 MG TAB PO SCH (08:23)
[2017-04-12] MEDS: hydrALAZINE HCL 100 MG TAB PO SCH ×3 (08:23→17:53)
[2017-04-12] MEDS: ARIPiprazole 5 MG TAB PO SCH (08:23)
[2017-04-12] MEDS: SODIUM CHLORIDE 0.9% FLUSH 10 ML FLUSH IV FLUSH SCH ×2 (08:28→20:53)
[2017-04-12] MEDS: D5-1/2 NS + KCL 20 MEQ INJ 1,000 ML IV SCH ×2 (11:20→20:25)
[2017-04-12 11:58] VITALS: BP 150/71; PULSE 56; RESP 19; TEMP 98.1; O2SAT 97
[2017-04-12] MEDS ORDERED: PROPOFOL 200 MG/20 ML AMP IV PUSH ONE (16:15)
--- NOTE | 2017-04-12 16:15 | GIPROC ---
[facility] [address] [facility]. [facility], [address] EGD PROCEDURE REPORT EXAM DATE: 04/12/2017 PATIENT NAME: Tavares Jackson MR #: [id number] BIRTHDATE: 1955 ATTENDING: Shawna Spain MD ORDER #: [id number] SUPERVISOR BRAIDING: Tiesha Yoder and Naif Ritchie STATUS: inpatient INDICATIONS: The patient is a 61 yr old male here for an EGD due to hematemesis PROCEDURE PERFORMED: EGD w/ biopsy MEDICATIONS: None and Per Anesthesia. TOPICAL ANESTHETIC: none CONSENT: The patient understands the risks and benefits of the procedure and understands that these risks include, but are not limited to: sedation, allergic reaction, infection, perforation and/or bleeding. Alternative means of evaluation and treatment include, among others: physical exam, x-rays, and/or surgical intervention. The patient elects to proceed with this endoscopic procedure. medical equipment was checked for proper function. Hand hygiene and appropriate measures for infection prevention was taken. After the risks, benefits and alternatives of the procedure were thoroughly explained, Informed consent was verified, confirmed and timeout was successfully executed by the treatment team. The patient was anesthetized with topical anesthesia and the Pentax [id number] endoscope was introduced through the mouth and advanced to the second portion of the duodenum. Retroflexion was performed and was normal The gastroscope was then slowly withdrawn and removed. ESOPHAGUS: There was LA Class D esophagitis noted. Multiple biopsies were performed. STOMACH: There was mild gastritis in the gastric antrum. Multiple biopsies were performed using cold forceps. Sample sent for histology. DUODENUM: Moderate duodenal inflammation was found in the bulb and second portion of the duodenum. ADVERSE EVENTS: There were no complications. IMPRESSIONS: 1. There was LA Class D esophagitis with ulcerations noted; multiple biopsies were performed 2. There was mild gastritis in the gastric antrum; multiple biopsies were performed 3. Duodenal inflammation was found in the bulb and second portion of the duodenum 4. Retroflexion was performed and was normal RECOMMENDATIONS: 1. Await biopsy results. Biopsy results will not be ready for 7-10 days. If you don't hear from us in two weeks, call our office for biopsy results. 2. Continue PPI PATIENT CONDITION: stable DISPOSITION: Observation REPEAT EXAM: NONE Shawna Spain MD eSigned: Shawna Spain MD 04/12/2017 4:15 PM cc: PATIENT NAME: Tavares Jackson MR#: [id number]
[2017-04-12] MEDS ORDERED: DO NOT ADM ANY ANTICOAGULANT DRUGS PRN (16:30)
[2017-04-12] MEDS: PANTOPRAZOLE SODIUM 40 MG VIAL IV PUSH SCH (20:58)
[2017-04-12 22:15] VITALS: BP 173/78; PULSE 58; RESP 18; TEMP 98.2; O2SAT 97
[2017-04-13 00:31] VITALS: BP 133/63; PULSE 82; RESP 18; TEMP 98.6; O2SAT 97
[2017-04-13] MEDS: D5-1/2 NS + KCL 20 MEQ INJ 1,000 ML IV SCH ×2 (02:55→06:15)
[2017-04-13 03:43] VITALS: BP 145/66; PULSE 50; RESP 18; TEMP 98.4; O2SAT 96
[2017-04-13] MEDS: INSULIN ASPART SUPPLEMENTAL SCALE SQ SCH (06:18)
[2017-04-13 07:26] VITALS: BP 166/75; PULSE 47; RESP 18; TEMP 98.6; O2SAT 97
[2017-04-13] MEDS ORDERED: PROT40TA PO (08:57)
[2017-04-13] MEDS ORDERED: SENN1TAB PO (08:57)
--- NOTE | 2017-04-13 08:58 | HHI.DCPOC ---
Discharge Care Plan Diagnosis: (1) Esophagitis (2) Esophageal ulceration (3) Gastritis (4) Upper GI bleed (5) Hematemesis (6) Constipation Goals to Promote Your Health * To prevent worsening of your condition and complications * To maintain your health at the optimal level Directions to Meet Your Goals Take your medications as prescribed Follow your dietary instruction Follow activity as directed Keep your appointments as scheduled Take your immunizations and boosters as scheduled If your symptoms worsen call your PCP, if no PCP go to Urgent Care Center or Emergency Room Smoking is Dangerous to Your Health. Avoid second hand smoke Call the 24-hour hour crisis hotline for domestic abuse at Lauren Diane PA-C Apr 13, 2017 08:58
--- NOTE | 2017-04-13 09:01 | HHI.DS ---
Discharge Summary Admission Date Apr 11, 2017 at 00:38 Discharge Date: Apr 13, 2017 Admitting Diagnosis UGI bleed, constipation (1) Hematemesis ICD Code: K92.0 - Hematemesis Diagnosis: Principal Status: Acute (2) Fecal impaction ICD Code: K56.41 - Fecal impaction Diagnosis: Principal (3) Constipation ICD Code: K59.00 - Constipation, unspecified Diagnosis: Principal Status: Acute (4) Renal insufficiency ICD Code: N28.9 - Disorder of kidney and ureter, unspecified Diagnosis: Secondary Status: Acute (5) DM (diabetes mellitus) ICD Code: E11.9 - Type 2 diabetes mellitus without complications Diagnosis: Secondary Status: Acute (6) Esophagitis ICD Code: K20.9 - Esophagitis, unspecified Diagnosis: Principal Status: Acute (7) Esophageal ulceration ICD Code: K22.10 - Ulcer of esophagus without bleeding Diagnosis: Principal Status: Acute (8) Gastritis ICD Code: K29.70 - Gastritis, unspecified, without bleeding Diagnosis: Principal Status: Acute Procedures 04/12/17 - EGD showed LA class D esophagitis with ulcerations, multiple biopsies taken; mild gastritis in the gastric antrum, multiple biopsies taken. GI recommended continuing PPI. Brief History - From Admission This is a 61-year-old male with a PMH of HTN, Anxiety, Depression, Bipolar Disorder and h/o GI Bleed who was sent to the ER from [facility] for hematemesis. Pt reports generalized abdominal pain in addition to nausea, vomiting for approx 2-3 days. Per EMS, pt w/ few episodes of coffee-ground emesis en route. Denies fever, chills or diarrhea. On arrival, BP 190/82, HR 58, O2 sat 98% on RA, Afebrile. W WBC 10.8, previously 10.6 on 05/23/16. Labs otherwise at baseline, creatinine 2.63, previously 2.47 on 05/23/16. Started on Protonix gtt in ER. CXR with no acute findings. CT Abd/Pelvis w/ rectal fecal impaction with large amount of stool and distended rectal vault. CBC/BMP: 8/21/17 0534 04/12/17 0534 Significant Findings Laboratory Tests Test 04/10/17 21:30 04/11/17 04:52 04/12/17 05:34 Red Blood Count 4.16 MIL/MM3 (4.50-5.90) 3.75 MIL/MM3 (4.50-5.90) 3.55 MIL/MM3 (4.50-5.90) Hemoglobin 10.8 GM/DL (13.0-17.0) 9.8 GM/DL (13.0-17.0) 9.1 GM/DL (13.0-17.0) Hematocrit 32.9 % (39.0-51.0) 29.5 % (39.0-51.0) 28.1 % (39.0-51.0) Mean Corpuscular Volume 79.3 FL (80.0-100.0) 78.5 FL (80.0-100.0) 79.2 FL (80.0-100.0) Mean Corpuscular Hemoglobin 26.1 PG (27.0-34.0) 26.1 PG (27.0-34.0) 25.6 PG (27.0-34.0) Neutrophils (%) (Auto) 88.3 % (16.0-70.0) 81.4 % (16.0-70.0) 72.0 % (16.0-70.0) Lymphocytes (%) (Auto) 5.6 % (9.0-44.0) Neutrophils # (Auto) 8.3 TH/MM3 (1.8-7.7) Lymphocytes # (Auto) 0.5 TH/MM3 (1.0-4.8) 0.9 TH/MM3 (1.0-4.8) Prothrombin Time 11.7 SEC (9.8-11.6) Blood Urea Nitrogen 41 MG/DL (7-18) 42 MG/DL (7-18) 42 MG/DL (7-18) Creatinine 2.63 MG/DL (0.60-1.30) 2.85 MG/DL (0.60-1.30) 2.84 MG/DL (0.60-1.30) Random Glucose 172 MG/DL (74-106) 144 MG/DL (74-106) Calcium Level 11.4 MG/DL (8.5-10.1) 11.7 MG/DL (8.5-10.1) 11.2 MG/DL (8.5-10.1) Aspartate Amino Transf (AST/SGOT) 13 U/L (15-37) 8 U/L (15-37) Estimat Glomerular Filtration Rate 25 ML/MIN (>89) 23 ML/MIN (>89) 23 ML/MIN (>89) Monocytes (%) (Auto) 8.9 % (0.0-8.0) 12.0 % (0.0-8.0) Hemoglobin A1c 6.1 % (4.3-6.0) Protein Corrected Calcium 11.8 MG/DL (8.5-10.1) Imaging Last Impressions Chest X-Ray 04/10/177 Signed Impressions: Service Date/Time: Monday, April 10, 2017 21:40 - CONCLUSION: No acute cardiopulmonary disease. [place] MD Abdomen/Pelvis CT 04/10/17 0000 Signed Impressions: Service Date/Time: Monday, April 10, 2017 23:12 - CONCLUSION: 1. Very small, anteriorly positioned pericardial effusion measuring 1 cm in depth. 2. Bilateral nonobstructing multiple renal calculi measuring up to 7 mm in diameter. 3. CT findings characteristic of rectal fecal impaction with a large amount of stool in the distended rectal vault. 4. Bilateral pars fractures at L5. 5. Central hypodensities at the musculotendinous junction of the iliacus and psoas muscles on the right. Findings are nonspecific. Is there a recent history of trauma? If patient is diabetic, could consider muscular infarction. Brian Laguerre MD PE at Discharge GENERAL: Well-nourished, well-developed pleasant elderly male patient in [facility]. SKIN: Warm and dry. No rash. HEENT: Normocephalic. Atraumatic. Pupils equal and round. Mucous membranes pink and moist. CARDIOVASCULAR: Regular rate and rhythm. S1, S2 noted. No murmur appreciated. RESPIRATORY: No accessory muscle use. Clear to auscultation. Breath sounds equal bilaterally. GASTROINTESTINAL: Abdomen soft, non-tender, nondistended. Normoactive bowel sounds x4. MUSCULOSKELETAL: No obvious deformities. Extremities without clubbing, cyanosis , or edema. NEUROLOGICAL: Awake and alert. No obvious cranial nerve deficits. Motor grossly within normal limits. Normal speech. PSYCHIATRIC: Appropriate mood and affect; insight and judgment limited. Pt update on day of discharge The patient reports feeling much better today. He tolerated oral intake last night and is looking forward to breakfast. He denies any nausea or vomiting. He had significant relief of his fecal impaction with large BM yesterday. He feels ready for discharge. Hospital Course 61-year-old male with a PMH of HTN, Anxiety, Depression, Bipolar Disorder and h/ o GI Bleed who was sent to the ER from [facility] for hematemesis. CT Abd/Pelvis w/ rectal fecal impaction with large amount of stool nondistended rectal vault, images reviewed by me. He was admitted to observation for GI bleeding and fecal impaction. Started on Protonix gtt, no further hematemesis, changed to IV protonix bid. Serial Hgb 10.8 --> 9.8 --> 9.1. He was given fleet enemas for his fecal impaction with significant relief, had two large bowel movements. GI consulted and following. 04/12/17 EGD showed LA class D esophagitis with ulcerations, multiple biopsies taken; mild gastritis in the gastric antrum, multiple biopsies taken. GI recommended continuing PPI. Diet was advanced. Patient tolerated well. He was discharged back to SNF on Protonix 40 mg twice a day. Pt Condition on Discharge: Stable Discharge Disposition: Discharge to SNF Discharge Time: > 30 minutes Discharge Instructions DIET: Follow Instructions for: Heart Healthy Diet Activities you can perform: Regular-No Restrictions Follow up Referrals: Gastroenterology - 1 Week @ [facility] PCP Follow-up - 1 Week with Hernando Patel MD New Medications: Sennosides-Docusate Sodium (Senna Plus 8.6-50 mg) 1 Tab Tab 1 TAB PO BID for Prevent Constipation, #60 TAB Changed Medications: Pantoprazole (Protonix) 40 Mg Tab 40 MG PO BID for Reflux, #60 TAB 0 Refills (Changed from: DAILY; 30) Continued Medications: Amlodipine (Norvasc) 10 Mg Tab 10 MG PO DAILY for Blood Pressure Management, #30 TAB 0 Refills Aripiprazole (Abilify) 2 Mg Tab 2.5 MG PO DAILY, #30 TAB 0 Refills Cholecalciferol (D-2000 Maximum Strength) 2,000 Unit Tab 4000 UNITS PO DAILY for Nutritional Supplement, #30 TAB 0 Refills Escitalopram (Lexapro) 10 Mg Tab 10 MG PO DAILY, #30 TAB 0 Refills Hydralazine HCl (Hydralazine HCl) 25 Mg Tablet 100 MG PO TID for Blood Pressure Management, #90 TAB 0 Refills Promethazine Supp (Promethazine Supp) 25 Mg Supp 25 MG RECTAL Q8HR PRN for NAUSEA OR VOMITING, SUPP 0 Refills Discontinued Medications: Sennosides (Senna-Tabs) 8.6 Mg Tab 8.6 MG PO HS for Constipation, #30 TAB 0 Refills Lauren Diane PA-C Apr 13, 2017 9:01 am
[2017-04-13] MEDS: ESCITALOPRAM OXALATE 10 MG TAB PO SCH (09:15)
[2017-04-13] MEDS: hydrALAZINE HCL 100 MG TAB PO SCH (09:15)
[2017-04-13] MEDS: ARIPiprazole 5 MG TAB PO SCH (09:16)
[2017-04-13] MEDS: DOCUSATE SODIUM 50 MG/SENNA 8.6 MG TAB PO SCH (09:16)
[2017-04-13] MEDS: PANTOPRAZOLE SODIUM 40 MG VIAL IV PUSH SCH (09:17)
[2017-04-13] MEDS: SODIUM CHLORIDE 0.9% FLUSH 10 ML FLUSH IV FLUSH SCH (09:19)
[2017-04-13 11:08] VITALS: BP 159/73; PULSE 49; RESP 18; TEMP 99; O2SAT 96
== END 2017-04-13 12:05 ==
LOC: NEPE 21:01 → NEDA 04-11 00:38 → NEPHCDU 04-11 02:14
PROVIDERS: ADMIT Hospitalist; ATTEND Hospitalist
DX: K22.10 Ulcer of esophagus without bleeding (principal); K29.70 Gastritis, unspecified, without bleeding; K56.41 Fecal impaction; N18.4 Chronic kidney disease, stage 4 (severe); I12.9 Hypertensive chronic kidney disease with stage 1 through stage 4 chronic kidney disease, or unspecified chronic kidney disease; E11.22 Type 2 diabetes mellitus with diabetic chronic kidney disease; E78.5 Hyperlipidemia, unspecified; F03.90 Unspecified dementia, unspecified severity, without behavioral disturbance, psychotic disturbance, mood disturbance, and anxiety; N20.0 Calculus of kidney; I31.3 Pericardial effusion (noninflammatory); S32.059A Unspecified fracture of fifth lumbar vertebra, initial encounter for closed fracture; F31.9 Bipolar disorder, unspecified; F20.9 Schizophrenia, unspecified
CPT/HCPCS: 00740; 43239; 71010; 74176; 80048; 80053; 82948; 83036; 83690; 85025; 85610; 85730; 86850; 86900; 86901; 88305; 88312; 93005; 96365; 96366; 96367; 96368; 96372; 96375; 99285; C9113; G0378; J1815; J2405; J3010; J3480; J7030

== ENCOUNTER 2017-06-09 13:16 | Inpatient (IN) | payer MEDICARE, MEDICAID ==
[~2017-06-09] VITALS: Ht 182.9 cm; Wt 82.0 kg
[~2017-06-09 13:16] MED LIST changes: +ABIL2TAB2 PO; -ABIL5TAB6 PO; -BISA10R PR; -CEFT2INJ IV; -CHLOR25 PO; +D-20TAB3 PO; +HYDR-3799 PO; -HYDR100T2 PO; -ONDA4 PO; -PANT20 PO; -PHEN12.5 PO; -PRAV20 PO; +PROM1SUP9 RECTAL; -PROM25R PR; +PROT40TA PO; -SENN-29 PO; +SENN1TAB PO; -SULF-154 PO; -VITA200017 PO
[2017-06-09 14:29] VITALS: BP 187/84; PULSE 72; RESP 17; TEMP 98.4; O2SAT 99
[2017-06-09] MEDS ORDERED: SODIUM CHLORIDE 0.9% FLUSH 10 ML FLUSH IVF PRN (15:15)
[2017-06-09] MEDS ORDERED: ONDANSETRON HCL 4 MG/2 ML VIAL IVP ONE (15:15)
--- NOTE | 2017-06-09 15:26 | PD ---
HPI Chief Complaint: GI Complaint Time Seen by Provider: 15:24 Travel History International Travel<30 days: No Contact w/Intl Traveler<30days: No Traveled to known affect area: No History of Present Illness HPI Patient comes emergency Department from [facility] for reported coffee-ground emesis and critical lab values. Patient states that he's been having epigastric pain along with nausea and vomiting with dark blood that began yesterday. Patient describes a sharp stabbing pain without radiation. Patient denies anything making it better or worse. Denies any chest pain, shortness of breath, fevers, or loss change in bowel or bladder. PFSH Past Medical History Anemia: Yes Arthritis: Yes Bipolar Disorder: Yes Anxiety: Yes Depression: No Cancer: No Cardiovascular Problems: Yes (HYPERTENSION) High Cholesterol: Yes Chemotherapy: No Dementia: Yes Diabetes: Yes Diminished Hearing: Yes Endocrine: Yes Gastrointestinal Disorders: Yes (HX OF GI BLEEDS) GERD: No Genitourinary: No Hypertension: Yes Immune Disorder: No Musculoskeletal: Yes Neurologic: No Psychiatric: Yes (SCHIZOPHRENIA, BIPOLAR, AND ANXIETY) Reproductive: No Respiratory: No Immunizations Current: Yes (PPD 2016) Radiation Therapy: No Schizophrenia: Yes Thyroid Disease: No Past Surgical History Other Surgery: No Social History Alcohol Use: Yes (OCCASIONALLY) Tobacco Use: No Substance Use: No Allergies-Medications (Allergen,Severity, Reaction): Coded Allergies: *MDRO Multi-Drug Resistant Organism (Verified Adverse Reaction, Unknown, ) MRSA (urine) - 04/12/16 Reported Meds & Prescriptions Reported Meds & Active Scripts Active Senna Plus 8.6-50 mg (Sennosides-Docusate Sodium) 1 Tab Tab 1 Tab PO BID Protonix (Pantoprazole Sodium) 40 Mg Tab 40 Mg PO BID Reported Aripiprazole 5 Mg Tab 2.5 Mg PO DAILY Maryellen-Jennifer (B-Complex W/ C & Folic Acid) 1 Tab 1 Tab PO DAILY Phenergan Inj (Promethazine HCl) 25 Mg/Ml Inj 25 Mg IM Q8HR PRN Hydralazine (Hydralazine HCl) 100 Mg Tab 100 Mg PO TID Take with meals Promethazine Supp (Promethazine HCl) 25 Mg Supp 25 Mg RECTAL Q8HR PRN Norvasc (Amlodipine Besylate) 10 Mg Tab 10 Mg PO DAILY Lexapro (Escitalopram Oxalate) 10 Mg Tab 10 Mg PO DAILY D-2000 Maximum Strength (Cholecalciferol) 2,000 Unit Tab 4,000 Units PO DAILY Review of Systems Except as stated in HPI: all other systems reviewed are Neg Physical Exam Narrative GENERAL: Well-developed, well nourished, in no acute distress, and non-ill appearing. SKIN: Focused skin assessment warm and dry. HEAD: Atraumatic. Normocephalic. EYES: Pupils equal and round. EOMI. No scleral icterus. No injection or drainage. ENT: No nasal bleeding or discharge. Mucous membranes pink and moist. NECK: Trachea midline. Supple. No nuclear rigidity. CARDIOVASCULAR: Regular rate and rhythm. No murmur appreciated. RESPIRATORY: No accessory muscle use. No respiratory distress. Clear to auscultation. Breath sounds equal bilaterally. GASTROINTESTINAL: Abdomen soft, patient reports tenderness epigastric area, nondistended, and no guarding. Hepatic and splenic margins not palpable. Hypoactive bowel sounds 4. No pulsatile mass. MUSCULOSKELETAL: No obvious deformities. No clubbing. No cyanosis. No edema. Full range of motion. NEUROLOGICAL: Awake and alert. No obvious cranial nerve deficits. Motor grossly within normal limits. Normal speech. PSYCHIATRIC: Appropriate mood and affect; insight and judgment normal. Data Data Last Documented VS Vital Signs Date Time Temp Pulse Resp B/P (MAP) Pulse Ox O2 Delivery O2 Flow Rate FiO2 06/09/17 18:00 61 17 111/55 (73) 99 Room Air 06/09/17 14:29 98.4 Orders Orders Complete Blood Count With Diff (06/09/17 15:15) Comprehensive Metabolic Panel (06/09/17 15:15) Lipase (06/09/17 15:15) Prothrombin Time / Inr (Pt) (06/09/17 15:15) Act Partial Throm Time (Ptt) (06/09/17 15:15) Type And Screen (06/09/17 15:15) Chest, Single Ap (06/09/17 15:15) Ecg Monitoring (06/09/17 15:15) Iv Access Insert/Monitor (06/09/17 15:15) Oximetry (06/09/17 15:15) Ondansetron Inj (Zofran Inj) (06/09/17 15:15) Sodium Chloride 0.9% Flush (Ns Flush) (06/09/17 15:15) Electrocardiogram (06/09/17 15:23) Oral Contrast - Adult (06/09/17 15:23) Sodium Chlor 0.9% 1000 Ml Inj (Ns 1000 M (06/09/17 15:45) Sodium Chloride 0.9... W/Pantoprazole In (06/09/17 18:03) Sodium Chloride 0.9... W/Pantoprazole In (06/09/17 18:03) Ct Abd/Pel W/O Iv Contrast (06/09/17 18:04) Diatrizoate Liq ( Gastrogui Liq) (06/09/17 18:23) Admit Order (Ed Use Only) (06/09/17 19:21) Labs Laboratory Tests Test 06/09/17 16:40 White Blood Count 12.2 TH/MM3 Red Blood Count 4.14 MIL/MM3 Hemoglobin 11.1 GM/DL Hematocrit 32.8 % Mean Corpuscular Volume 79.4 FL Mean Corpuscular Hemoglobin 26.8 PG Mean Corpuscular Hemoglobin Concent 33.8 % Red Cell Distribution Width 16.1 % Platelet Count 199 TH/MM3 Mean Platelet Volume 8.9 FL Neutrophils (%) (Auto) 87.9 % Lymphocytes (%) (Auto) 5.9 % Monocytes (%) (Auto) 6.1 % Eosinophils (%) (Auto) 0.0 % Basophils (%) (Auto) 0.1 % Neutrophils # (Auto) 10.8 TH/MM3 Lymphocytes # (Auto) 0.7 TH/MM3 Monocytes # (Auto) 0.7 TH/MM3 Eosinophils # (Auto) 0.0 TH/MM3 Basophils # (Auto) 0.0 TH/MM3 CBC Comment DIFF FINAL Differential Comment Prothrombin Time 11.3 SEC Prothromb Time International Ratio 1.0 RATIO Activated Partial Thromboplast Time 25.4 SEC Blood Urea Nitrogen 41 MG/DL Creatinine 2.64 MG/DL Random Glucose 185 MG/DL Total Protein 7.6 GM/DL Albumin 4.1 GM/DL Calcium Level 12.2 MG/DL Alkaline Phosphatase 83 U/L Aspartate Amino Transf (AST/SGOT) 24 U/L Alanine Aminotransferase (ALT/SGPT) 22 U/L Total Bilirubin 0.5 MG/DL Sodium Level 136 MEQ/L Potassium Level 3.6 MEQ/L Chloride Level 99 MEQ/L Carbon Dioxide Level 28.5 MEQ/L Anion Gap 9 MEQ/L Estimat Glomerular Filtration Rate 25 ML/MIN Protein Corrected Calcium 11.9 MG/DL Lipase 103 U/L [facility] Medical Decision Making Medical Screen Exam Complete: Yes Emergency Medical Condition: Yes Interpretation(s) EKG reviewed by Dr. Cage shows normal sinus rhythm with second-degree AV block. Ventricular rate of 61. No STEMI. Differential Diagnosis GI bleed, hemoptysis, electrolyte abnormality, dehydration, bowel obstruction, pancreatitis, constipation, other Narrative Course Patient was seen and examined. Initial laboratory radiologic studies were ordered. Patient is given IV fluid started on Protonix drip. Hemoccult was negative, but sputum/vomit was positive. Discussed all findings and plan of care with Dr. Trujillo, who is in agreement with plan of care and disposition. Discussed all findings and plan of care with patient, who is agreeable for admission. All questions were answered. Discussed patient with hospitalist, who is agreeable to admit the patient. HemaPrompt Point of Care Internal Pos. & Neg. Controls: Passed Fecal Specimen Occult Blood: Negative Gastric Specimen Occult Blood: Positive Physician Communication Physician Communication [address] Wallace, who is agreeable to admit the patient. Diagnosis Primary Impression: Upper GI bleed Additional Impression: Hypercalcemia Admitting Information Admitting Physician Requests: Observation Condition: Stable Vladimir Ascencio Jun 09, 2017 15:26
--- NOTE | 2017-06-09 15:38 | RADRPT ---
EXAM DATE/TIME: 06/09/2017 15:19 [facility] COMPARISON: CHEST SINGLE AP, April 10, 2017, 21:40. INDICATIONS : Vomiting, chest pain. MEDICAL HISTORY : None. SURGICAL HISTORY : None. ENCOUNTER: Initial ACUITY: 1 day PAIN SCORE: 10/10 LOCATION: Bilateral chest FINDINGS: Portable AP view of the chest demonstrates a normal-sized cardiac silhouette. No effusion, consolidat ion, or pneumothorax is visualized. The bones and soft tissues demonstrate no acute abnormality. Ther e are degenerative changes of the thoracic spine. CONCLUSION: No acute cardiopulmonary abnormality is identified. Tavares Saunders MD on June 09, 2017 at 15:34 Board Certified Radiologist. This report was verified electronically.
[2017-06-09] MEDS ORDERED: SODIUM CHLOR 0.9% 1000 ML INJ 1,000 ML IV ONE (15:45)
[2017-06-09 16:55] VITALS: O2SAT 95
[2017-06-09 17:14] LABS: AUTOMATED NEUTROPHIL # 10.8 TH/MM3 (1.8-7.7); BASOPHIL % 0.1 % (0.0-2.0); HEMATOCRIT 32.8 % (39.0-51.0); HEMO FLAGS DIFF FINAL; LYMPH % 5.9 % (9.0-44.0); LYMPHOCYTE # 0.7 TH/MM3 (1.0-4.8); MEAN CELL VOLUME 79.4 FL (80.0-100.0); MEAN CORPUSCULAR HEMOGLOBIN 26.8 PG (27.0-34.0); MEAN CORPUSCULAR HGB CONC 33.8 % (32.0-36.0); MONO % 6.1 % (0.0-8.0); NEUT % 87.9 % (16.0-70.0); PLATELET COUNT 199 TH/MM3 (150-450); RED BLOOD COUNT 4.14 MIL/MM3 (4.50-5.90); RED CELL DISTRIBUTION WIDTH 16.1 % (11.6-17.2); WHITE BLOOD COUNT 12.2 TH/MM3 (4.0-11.0)
[2017-06-09] MEDS ORDERED: RENATAB5 PO (17:15)
[2017-06-09] MEDS ORDERED: PROM2INJ IM (17:15)
[2017-06-09] MEDS ORDERED: HYDR-3801 PO (17:15)
[2017-06-09] MEDS ORDERED: ARIP1TAB11 PO (17:16)
[2017-06-09 17:27] LABS: APTT (PATIENT) 25.4 SEC (24.3-30.1); PROTHROMBIN TIME - PATIENT 11.3 SEC (9.8-11.6)
[2017-06-09 18:00] VITALS: BP 111/55; PULSE 61; RESP 17; O2SAT 99
[2017-06-09] MEDS ORDERED: PANTOPRAZOLE INJ 80 MG in SODIUM CHLORIDE 0.9% INJ 35 ML IV ONE (18:03)
[2017-06-09] MEDS ORDERED: DIATRIZOATE MEGLUM/DIATRIZOATE SOD 9 ML CUP ONE (18:23)
[2017-06-09 18:35] LABS: BICARBONATE 28.5 MEQ/L (21.0-32.0); POTASSIUM 3.6 MEQ/L (3.5-5.1); TOTAL BILIRUBIN ADULT 0.5 MG/DL (0.2-1.0)
[2017-06-09 18:39] LABS: CALCIUM-PROTEIN CORRECTED 11.9 MG/DL (8.5-10.1)
--- NOTE | 2017-06-09 18:57 | RADRPT ---
EXAM DATE/TIME: 06/09/2017 18:40 [facility] COMPARISON: CT ABDOMEN & PELVIS W/O CONTRAST, April 10, 2017, 23:12. INDICATIONS : Diffuse abdomen ORAL CONTRAST: No oral contrast ingested. RADIATION DOSE: 9.55 CTDIvol (mGy) MEDICAL HISTORY : Dementia. Hypertension. Diabetes mellitus type 2.Ulcer. SURGICAL HISTORY : None. ENCOUNTER: Initial ACUITY: 1 day PAIN SCALE: 7/10 LOCATION: Bilateral upper quadrant TECHNIQUE: Volumetric scanning of the abdomen and pelvis was performed. Using automated exposure control and ad justment of the mA and/or kV according to patient size, radiation dose was kept as low as reasonably achievable to obtain optimal diagnostic quality images. DICOM format image data is available electro nically for review and comparison. FINDINGS: Bony structures reveal degenerative changes facet arthritic changes lower lumbar spine and bilateral pars defects of L5. The central hypodensities in the musculotendinous junction of the iliac and psoas margins on the right in the groin region are unchanged. Atherosclerotic vascular calcifications in a tracy and iliac vessels noted with no evidence of aneurysm. The liver gallbladder spleen and bilateral adrenal glands are normal as is the pancreas. Bilateral calyceal nonobstructing stones mul tiple are appreciated unchanged relative to the prior study with additionally the 7 cm cyst of the an terior cortex of the left kidney midpole unchanged. There is a moderate amount of fecal material in t he rectosigmoid bowel CONCLUSION: Stable CT scan of the abdomen and pelvis with no acute intra-abdominal or pelvic process. Bilateral multiple renal calyceal stones nonobstructi ve. These are unchanged. Stable 7 cm left renal cyst. Moderate amount of residual fecal material in t he rectosigmoid vault. Bilateral pars defects L5. Unchanged hypodensities at the junction iliac us an d psoas margins in the right inguinal region. Armando Bello MD on June 09, 2017 at 18:48 Board Certified Radiologist. This report was verified electronically.
[2017-06-09] MEDS: PANTOPRAZOLE INJ 80 MG in SODIUM CHLORIDE 0.9% INJ 100 ML IV SCH (19:05)
[2017-06-09] MEDS ORDERED: NALOXONE HCL 0.4 MG/ML AMP IV PUSH PRN (19:45)
[2017-06-09] MEDS ORDERED: SODIUM CHLORIDE 0.9% FLUSH 10 ML FLUSH IV FLUSH PRN (19:45)
[2017-06-09 20:49] VITALS: BP 118/56; PULSE 61; RESP 17; TEMP 98.6; O2SAT 98
[2017-06-09] MEDS: SODIUM CHLORIDE 0.9% FLUSH 10 ML FLUSH IV FLUSH SCH (21:00)
[2017-06-09 21:11] VITALS: PULSE 88
[2017-06-09 23:14] VITALS: BP 118/66; PULSE 63; RESP 16; TEMP 98.5; O2SAT 98
--- NOTE | 2017-06-09 23:49 | HHI.HP ---
[facility] Phys[facility] Unknown Admission Diagnosis GI bleed, hypercalcemia Diagnoses: Travel History International Travel<30 Days: No Contact w/Intl Traveler <30 Da: No Traveled to Known Affected Are: No History of Present Illness hx from patient, ER communication, NH transfer notes vomiting few days black color of vomit reports of diarrhea as well per patient - 2 days, couple of times does not know color of stool no fever had sob little bit chest pain no abdominal pain Review of Systems ROS Limitations: Poor Historian Except as stated in HPI: all other systems reviewed are Neg Past Family Social History Past Medical History htn dm ckd bipolar disorder hx of gi bleed from ulcers Past Surgical History egd colonoscopies Allergies: Coded Allergies: *MDRO Multi-Drug Resistant Organism (Verified Adverse Reaction, Unknown, ) MRSA (urine) - 04/12/16 Family History mother- dm Social History denies smoking/ etoh abuse/ drug abuse Physical Exam Vital Signs Vital Signs Date Time Temp Pulse Resp B/P (MAP) Pulse Ox O2 Delivery O2 Flow Rate FiO2 06/09/17 23:14 98.5 63 16 118/66 (83) 98 06/09/17 21:11 88 06/09/17 20:49 98.6 61 17 118/56 (76) 98 06/09/17 18:00 61 17 111/55 (73) 99 Room Air 06/09/17 16:55 95 Room Air 06/09/17 14:29 98.4 72 17 187/84 (118) 99 Room Air Physical Exam GENERAL: This is a well-nourished, well-developed patient, in no apparent distress. SKIN: No rashes, ecchymoses or lesions. Cool and dry. HEAD: Atraumatic. Normocephalic. No temporal or scalp tenderness. EYES: Pupils equal round and reactive. Extraocular motions intact. No scleral icterus. No injection or drainage. ENT: Nose without bleeding, purulent drainage or septal hematoma. Throat without erythema, tonsillar hypertrophy or exudate. Uvula midline. Airway patent. NECK: Trachea midline. No JVD or lymphadenopathy. Supple, nontender, no meningeal signs. CARDIOVASCULAR: Regular rate and rhythm without murmurs, gallops, or rubs. RESPIRATORY: Clear to auscultation. Breath sounds equal bilaterally. No wheezes , rales, or rhonchi. GASTROINTESTINAL: Abdomen soft, non-tender, nondistended. No hepato-splenomegaly , or palpable masses. No guarding. MUSCULOSKELETAL: Extremities without clubbing, cyanosis, or edema. No joint tenderness, effusion, or edema noted. No calf tenderness. Negative Homans sign bilaterally. NEUROLOGICAL: Awake and alert. Cranial nerves II through XII intact. Motor and sensory grossly within normal limits. Five out of 5 muscle strength in all muscle groups. Normal speech. Laboratory Laboratory Tests Test 06/09/17 16:40 White Blood Count 12.2 Red Blood Count 4.14 Hemoglobin 11.1 Hematocrit 32.8 Mean Corpuscular Volume 79.4 Mean Corpuscular Hemoglobin 26.8 Mean Corpuscular Hemoglobin Concent 33.8 Red Cell Distribution Width 16.1 Platelet Count 199 Mean Platelet Volume 8.9 Neutrophils (%) (Auto) 87.9 Lymphocytes (%) (Auto) 5.9 Monocytes (%) (Auto) 6.1 Eosinophils (%) (Auto) 0.0 Basophils (%) (Auto) 0.1 Neutrophils # (Auto) 10.8 Lymphocytes # (Auto) 0.7 Monocytes # (Auto) 0.7 Eosinophils # (Auto) 0.0 Basophils # (Auto) 0.0 CBC Comment DIFF FINAL Differential Comment Prothrombin Time 11.3 Prothromb Time International Ratio 1.0 Activated Partial Thromboplast Time 25.4 Blood Urea Nitrogen 41 Creatinine 2.64 Random Glucose 185 Total Protein 7.6 Albumin 4.1 Calcium Level 12.2 Alkaline Phosphatase 83 Aspartate Amino Transf (AST/SGOT) 24 Alanine Aminotransferase (ALT/SGPT) 22 Total Bilirubin 0.5 Sodium Level 136 Potassium Level 3.6 Chloride Level 99 Carbon Dioxide Level 28.5 Anion Gap 9 Estimat Glomerular Filtration Rate 25 Protein Corrected Calcium 11.9 Lipase 103 Result Diagram: 06/09/17 1640 06/09/17 1640 Imaging Last 48 hours Impressions Abdomen/Pelvis CT 06/09/17 9674 Signed Impressions: Service Date/Time: Friday, June 09, 2017 18:40 - CONCLUSION: Stable CT scan of the abdomen and pelvis with no acute intra-abdominal or pelvic process. Bilateral multiple renal calyceal stones nonobstructive. These are unchanged. Stable 7 cm left renal cyst. Moderate amount of residual fecal material in the rectosigmoid vault. Bilateral pars defects L5. Unchanged hypodensities at the junction iliac us and psoas margins in the right inguinal region. Armando Bello MD Chest X-Ray 06/09/17 9201 Signed Impressions: Service Date/Time: Friday, June 09, 2017 15:19 - CONCLUSION: No acute cardiopulmonary abnormality is identified. Tavares Saunders MD [place] VTE Risk Assessment Caprini VTE Risk Assessment: Mod/High Risk (score >= 2) Caprini Risk Assessment Model Point Value = 1 Point Value = 2 Point Value = 3 Point Value = 5 Age 41-60 Minor surgery BMI > 25 kg/m2 Swollen legs Varicose veins or History of unexplained or recurrent spontaneous Oral contraceptives or hormone replacement Sepsis (< 1 month) Serious lung disease, including pneumonia (< 1 month) Abnormal pulmonary function Acute myocardial infarction Congestive heart failure (< 1 month) History of inflammatory bowel disease Medical patient at bed rest Age 61-74 Arthroscopic surgery Major open surgery (> 45 min) Laparoscopic surgery (> 45 min) Malignancy Confined to bed (> 72 hours) Immobilizing plaster cast Central venous access Age >= 75 History of VTE Family history of VTE Factor V Leiden Prothrombin [id number] Lupus anticoagulant Anticardiolipin antibodies Elevated serum homocysteine Heparin-induced thrombocytopenia Other congenital or acquired thrombophilia Stroke (< 1 month) Elective arthroplasty Hip, pelvis, or leg fracture Acute spinal cord injury (< 1 month) Prophylaxis Regimen Total Risk Factor Score Risk Level Prophylaxis Regimen 0-1 Low Early ambulation 2 Moderate Order ONE of the following: *Sequential Compression Device (SCD) *Heparin 5000 units SQ BID 3-4 Higher Order ONE of the following medications: *Heparin 5000 units SQ TID *Enoxaparin/Lovenox 40 mg SQ daily (WT < 150 kg, CrCl > 30 mL/min) *Enoxaparin/Lovenox 30 mg SQ daily (WT < 150 kg, CrCl > 10-29 mL/min) *Enoxaparin/Lovenox 30 mg SQ BID (WT < 150 kg, CrCl > 30 mL/min) AND/OR *Sequential Compression Device (SCD) 5 or more Highest Order ONE of the following medications: *Heparin 5000 units SQ TID (Preferred with Epidurals) *Enoxaparin/Lovenox 40 mg SQ daily (WT < 150 kg, CrCl > 30 mL/min) *Enoxaparin/Lovenox 30 mg SQ daily (WT < 150 kg, CrCl > 10-29 mL/min) *Enoxaparin/Lovenox 30 mg SQ BID (WT < 150 kg, CrCl > 30 mL/min) AND *Sequential Compression Device (SCD) Assessment and Plan Assessment and Plan Impression: ugi bleed- symptomatic with dyspnea, palpitations, chest pain; witnessed episodes of hematemesis in ER and CDU , clinically pale htn dm ckd bipolar disorder hx of gi bleed from ulcers Plan: serial hgb hct dropped 2 units in about 6hrs thus transfuse 2 units of prbc, each over 4 hrs gi consult ppi drip avoid blood thinners/ nsaids monitor fingersticks on d5 1/2 ns at 84cc.hr resume home meds scd Discussed Condition With patient , ER PA, nursing staff Wale Wallace MD Jun 09, 2017 23:49
[2017-06-10 00:13] LABS: HEMATOCRIT 27.5 % (39.0-51.0); REVIEW FLAG FINAL
[2017-06-10 03:10] VITALS: BP 146/68; PULSE 56; RESP 16; TEMP 98; O2SAT 97
[2017-06-10] MEDS: PANTOPRAZOLE INJ 80 MG in SODIUM CHLORIDE 0.9% INJ 100 ML IV SCH (05:07)
[2017-06-10 07:41] VITALS: BP 146/59; PULSE 50; RESP 20; TEMP 98.1; O2SAT 96
[2017-06-10] MEDS ORDERED: PROMETHAZINE INJ 25 MG/ML VIAL IM PRN (07:45)
[2017-06-10] MEDS ORDERED: DEXTROSE 50% IN WATER 50 ML VIAL(D50) IV PUSH PRN ×2 (07:45→11:00)
[2017-06-10] MEDS ORDERED: GLUCAGON 1 MG/ML VIAL OTHER PRN ×2 (07:45→11:00)
[2017-06-10 08:09] LABS: BICARBONATE 21.7 MEQ/L (21.0-32.0); POTASSIUM 3.9 MEQ/L (3.5-5.1)
--- NOTE | 2017-06-10 08:24 | PD.CONS ---
HPI History of Present Illness This is a 61 year old male who was brought from [facility] for evaluation of coffee-ground emesis and anemia. He is a poor historian, but reports that he started having nausea and vomiting consisting of coffee ground emesis yesterday. He cannot identify any aggravating or alleviating factors. He denies any associated abdominal pain, heartburn, reflux, decreased appetite, weight loss, bowel changes, constipation , diarrhea, melena, or hematochezia. He does not have any blood thinners listed in his MAR, but he does state that he takes Advil. However, he cannot tell me what this is for or how often he takes it. H/H was 9.1/27.[address] scan abdomen and pelvis (06/09/17)---> stable CT scan of the abdomen and pelvis with no acute intra-abdominal or pelvic processes. Bilateral multiple renal calyceal stones nonobstructive these are unchanged. Stable 7 cm left renal cyst. Moderate amount of residual fecal material in the rectosigmoid vault. Bilateral pars defects L5. Unchanged hypodensities at the junction iliac US and psoas margins in the right inguinal region. The patient does not recall having an egd in the past, but records show that he was evaluated with EGD (04/12/17)---> there was LA class D esophagitis with ulcerations noted; multiple biopsies were performed. There was mild gastritis in the gastric antrum; multiple biopsies were performed. Duodenal inflammation was found in the bulb and second portion of the duodenum. Retroflexion was performed and was normal. Gastric antrum chemical gastropathy as may be seen with bile reflux or drug therapy. Distal esophagus biopsy with squamous mucosa with acute ulceration. Viral inclusions are not identified. A GMS stain is negative for fungal organisms. (Shasha Durham) PFSH Past Medical History Esophagitis, Gastritis, Duodenitis HTN Diabetes Chronic kidney disease Bipolar disorder Hx GIB Past Surgical History EGD Colonoscopy (Shasha Durham) Coded Allergies: *MDRO Multi-Drug Resistant Organism (Verified Adverse Reaction, Unknown, ) MRSA (urine) - 04/12/16 Medications Allergies Coded Allergies Type Severity Reaction Last Updated Verified *MDRO Multi-Drug Resistant Organism Adverse Reaction Unknown 04/14/16 Yes Active Scripts Medications Dose Route/Sig Max Daily Dose Days Date Category Dose Instructions Aripiprazole 5 Mg Tab 2.5 Mg PO DAILY 06/09/17 Reported Maryellen-Jennifer (B-Complex W/ C & Folic Acid) 1 Tab 1 Tab PO DAILY 06/09/17 Reported Phenergan Inj (Promethazine HCl) 25 Mg/Ml Inj 25 Mg IM Q8HR PRN 06/09/17 Reported Hydralazine (Hydralazine HCl) 100 Mg Tab 100 Mg PO TID 06/09/17 Reported Take with meals Senna Plus 8.6-50 mg (Sennosides-Docusate Sodium) 1 Tab Tab 1 Tab PO BID 04/13/17 Rx Protonix (Pantoprazole Sodium) 40 Mg Tab 40 Mg PO BID 04/13/17 Rx Promethazine Supp (Promethazine HCl) 25 Mg Supp 25 Mg RECTAL Q8HR PRN 04/11/17 Reported Norvasc (Amlodipine Besylate) 10 Mg Tab 10 Mg PO DAILY 04/11/17 Reported Lexapro (Escitalopram Oxalate) 10 Mg Tab 10 Mg PO DAILY 04/11/17 Reported D-2000 Maximum Strength (Cholecalciferol) 2,000 Unit Tab 4,000 Units PO DAILY 04/11/17 Reported Family History Mother has diabetes Social History Denies tobacco, etoh, or illicit drug use. (Shasha Durham) Review of Systems Constitutional: COMPLAINS OF: Fatigue, DENIES: Weight loss, Change in appetite Respiratory: DENIES: Cough, Shortness of breath Cardiovascular: DENIES: Chest pain Gastrointestinal: COMPLAINS OF: Nausea, Vomiting, Hematemesis, DENIES: Abdominal pain, Black stools, Bloody stools, Constipation, Diarrhea, Anorexia, Swelling of Abdomen, Heartburn Musculoskeletal: DENIES: Joint pain, Back pain Hematologic/lymphatic: DENIES: Bruising Neurologic: DENIES: Headache Psychiatric: DENIES: Confusion ROS Poor historian (Shasha Durham) GI Exam Vitals I&O Vital Signs Date Time Temp Pulse Resp B/P (MAP) Pulse Ox O2 Delivery O2 Flow Rate FiO2 06/10/17 07:41 98.1 50 20 146/59 (88) 96 06/10/17 03:10 98.0 56 16 146/68 (94) 97 06/09/17 23:14 98.5 63 16 118/66 (83) 98 06/09/17 21:11 88 06/09/17 20:49 98.6 61 17 118/56 (76) 98 06/09/17 18:00 61 17 111/55 (73) 99 Room Air 06/09/17 16:55 95 Room Air 06/09/17 14:29 98.4 72 17 187/84 (118) 99 Room Air I/O 06/09/17 06/09/17 06/09/17 06/10/17 06/10/17 06/10/17 06:59 14:59 22:59 06:59 14:59 22:59 Intake Total 200 ml Output Total 40 ml Balance -40 ml 200 ml Intake IV Total 200 ml Output Emesis 40 ml Imaging Last Impressions Abdomen/Pelvis CT 06/09/17 1804 Signed Impressions: Service Date/Time: Friday, June 09, 2017 18:40 - CONCLUSION: Stable CT scan of the abdomen and pelvis with no acute intra-abdominal or pelvic process. Bilateral multiple renal calyceal stones nonobstructive. These are unchanged. Stable 7 cm left renal cyst. Moderate amount of residual fecal material in the rectosigmoid vault. Bilateral pars defects L5. Unchanged hypodensities at the junction iliac us and psoas margins in the right inguinal region. Armando Bello MD Chest X-Ray 06/09/17 1515 Signed Impressions: Service Date/Time: Friday, June 09, 2017 15:19 - CONCLUSION: No acute cardiopulmonary abnormality is identified. Tavares Saunders MD Laboratory Test 06/09/17 16:40 06/09/17 23:53 06/10/17 06:50 White Blood Count 12.2 TH/MM3 Red Blood Count 4.14 MIL/MM3 Hemoglobin 11.1 GM/DL 9.1 GM/DL Hematocrit 32.8 % 27.5 % Mean Corpuscular Volume 79.4 FL Mean Corpuscular Hemoglobin 26.8 PG Mean Corpuscular Hemoglobin Concent 33.8 % Red Cell Distribution Width 16.1 % Platelet Count 199 TH/MM3 Mean Platelet Volume 8.9 FL Neutrophils (%) (Auto) 87.9 % Lymphocytes (%) (Auto) 5.9 % Monocytes (%) (Auto) 6.1 % Eosinophils (%) (Auto) 0.0 % Basophils (%) (Auto) 0.1 % Neutrophils # (Auto) 10.8 TH/MM3 Lymphocytes # (Auto) 0.7 TH/MM3 Monocytes # (Auto) 0.7 TH/MM3 Eosinophils # (Auto) 0.0 TH/MM3 Basophils # (Auto) 0.0 TH/MM3 CBC Comment DIFF FINAL Differential Comment Prothrombin Time 11.3 SEC Prothromb Time International Ratio 1.0 RATIO Activated Partial Thromboplast Time 25.4 SEC Blood Urea Nitrogen 41 MG/DL 46 MG/DL Creatinine 2.64 MG/DL 2.78 MG/DL Random Glucose 185 MG/DL 102 MG/DL Total Protein 7.6 GM/DL Albumin 4.1 GM/DL Calcium Level 12.2 MG/DL 10.9 MG/DL Alkaline Phosphatase 83 U/L Aspartate Amino Transf (AST/SGOT) 24 U/L Alanine Aminotransferase (ALT/SGPT) 22 U/L Total Bilirubin 0.5 MG/DL Sodium Level 136 MEQ/L 135 MEQ/L Potassium Level 3.6 MEQ/L 3.9 MEQ/L Chloride Level 99 MEQ/L 105 MEQ/L Carbon Dioxide Level 28.5 MEQ/L 21.7 MEQ/L Anion Gap 9 MEQ/L 8 MEQ/L Estimat Glomerular Filtration Rate 25 ML/MIN 23 ML/MIN Protein Corrected Calcium 11.9 MG/DL Lipase 103 U/L Physical Examination HEENT: Normocephalic; atraumatic; no jaundice. CHEST: Resp. even/unlabored, shallow. CTA CARDIAC: RRR ABDOMEN: Soft, nondistended, nontender; no hepatosplenomegaly; bowel sounds are present in all four quadrants. EXTREMITIES: No clubbing, cyanosis, or edema. SKIN: Skin w/d MICROBIOLOGY ANALYST: No focal deficits; alert and oriented times three. (Shasha Durham) Assessment and Plan Plan ASSESSMENT: - Upper GIB, Coffee ground emesis. Brought from local rehab center for evaluation of coffee ground emesis and anemia. Pt poor historian, but denies any other GI symptoms. he was seen earlier this year and underwent EGD (04/12/17)---> there was LA class D esophagitis with ulcerations noted; multiple biopsies were performed. There was mild gastritis in the gastric antrum; multiple biopsies were performed. Duodenal inflammation was found in the bulb and second portion of the duodenum. Retroflexion was performed and was normal. Gastric antrum chemical gastropathy as may be seen with bile reflux or drug therapy. Distal esophagus biopsy with squamous mucosa with acute ulceration. Viral inclusions are not identified. A GMS stain is negative for fungal organisms. CT scan abdomen and pelvis ()---> stable CT scan of the abdomen and pelvis with no acute intra-abdominal or pelvic processes. Bilateral multiple renal calyceal stones nonobstructive these are unchanged. Stable 7 cm left renal cyst. Moderate amount of residual fecal material in the rectosigmoid vault. Bilateral pars defects L5. Unchanged hypodensities at the junction iliac US and psoas margins in the right inguinal region. HH last night 9.09/18.5. Rpt. labs pending. Protonix Gtt. Plan for EGD today. - Anemia, acute blood loss. Rpt. Labs pending. - Hx esophagitis, gastritis, duodenitis. PPI - HTN, DM, CKD, Bipolar d/o per attending. PLAN: - Plan for egd - Obtain consents - NPO - Protonix Gtt - Monitor HH - Transfuse as necessary - Supportive care - Further recommendations to follow based on results of above - Pt seen and examined by Dr. Peñaloza and myself and this note is written on his behalf (Shasha Durham) Physician Comments Date of service 06/10/17 Patient seen and examined Agree with above Continue with current supportive care Monitor labs EGD to follow (Greyson Peñaloza MD) Shasha Durham Jun 10, 2017 08:23 Greyson Peñaloza MD Jun 11, 2017 15:07
[2017-06-10] MEDS ORDERED: PILL SPLITTER OTHER PRN (08:45)
[2017-06-10] MEDS ORDERED: SEVELAMER CARBONATE 800 MG TAB PO SCH (09:00)
[2017-06-10] MEDS: VITAMIN B CMPLX/VITC/FOLIC AC CAP PO SCH (09:04)
[2017-06-10 09:50] VITALS: PULSE 53
[2017-06-10] MEDS: SODIUM CHLORIDE 0.9% FLUSH 10 ML FLUSH IV FLUSH SCH ×2 (09:55→21:13)
[2017-06-10] MEDS: hydrALAZINE HCL 100 MG TAB PO SCH ×3 (09:55→17:30)
[2017-06-10] MEDS: DEXT 5%-NACL 0.45% 1000 ML INJ 1,000 ML IV SCH ×2 (09:55→21:13)
[2017-06-10] MEDS: ARIPiprazole 5 MG TAB PO SCH (09:56)
[2017-06-10] MEDS: ESCITALOPRAM OXALATE 10 MG TAB PO SCH (09:56)
--- NOTE | 2017-06-10 10:09 | HHI.PR ---
Subjective Remarks Patient resting in bed able to awake easily offers no complaints no further vomiting since last night denies nausea, vomiting, feeling light headed or dizzy Objective Vitals Vital Signs Date Time Temp Pulse Resp B/P (MAP) Pulse Ox O2 Delivery O2 Flow Rate FiO2 06/10/17 07:41 98.1 50 20 146/59 (88) 96 06/10/17 03:10 98.0 56 16 146/68 (94) 97 06/09/17 23:14 98.5 63 16 118/66 (83) 98 06/09/17 21:11 88 06/09/17 20:49 98.6 61 17 118/56 (76) 98 06/09/17 18:00 61 17 111/55 (73) 99 Room Air 06/09/17 16:55 95 Room Air 06/09/17 14:29 98.4 72 17 187/84 (118) 99 Room Air Result Diagram: 06/09/17 8237 06/10/17 0650 Other Results Laboratory Tests Test 06/09/17 16:40 06/09/17 23:53 06/10/17 06:50 White Blood Count 12.2 TH/MM3 Red Blood Count 4.14 MIL/MM3 Hemoglobin 11.1 GM/DL 9.1 GM/DL Hematocrit 32.8 % 27.5 % Mean Corpuscular Volume 79.4 FL Mean Corpuscular Hemoglobin 26.8 PG Mean Corpuscular Hemoglobin Concent 33.8 % Red Cell Distribution Width 16.1 % Platelet Count 199 TH/MM3 Mean Platelet Volume 8.9 FL Neutrophils (%) (Auto) 87.9 % Lymphocytes (%) (Auto) 5.9 % Monocytes (%) (Auto) 6.1 % Eosinophils (%) (Auto) 0.0 % Basophils (%) (Auto) 0.1 % Neutrophils # (Auto) 10.8 TH/MM3 Lymphocytes # (Auto) 0.7 TH/MM3 Monocytes # (Auto) 0.7 TH/MM3 Eosinophils # (Auto) 0.0 TH/MM3 Basophils # (Auto) 0.0 TH/MM3 CBC Comment DIFF FINAL Differential Comment Prothrombin Time 11.3 SEC Prothromb Time International Ratio 1.0 RATIO Activated Partial Thromboplast Time 25.4 SEC Blood Urea Nitrogen 41 MG/DL 46 MG/DL Creatinine 2.64 MG/DL 2.78 MG/DL Random Glucose 185 MG/DL 102 MG/DL Total Protein 7.6 GM/DL Albumin 4.1 GM/DL Calcium Level 12.2 MG/DL 10.9 MG/DL Alkaline Phosphatase 83 U/L Aspartate Amino Transf (AST/SGOT) 24 U/L Alanine Aminotransferase (ALT/SGPT) 22 U/L Total Bilirubin 0.5 MG/DL Sodium Level 136 MEQ/L 135 MEQ/L Potassium Level 3.6 MEQ/L 3.9 MEQ/L Chloride Level 99 MEQ/L 105 MEQ/L Carbon Dioxide Level 28.5 MEQ/L 21.7 MEQ/L Anion Gap 9 MEQ/L 8 MEQ/L Estimat Glomerular Filtration Rate 25 ML/MIN 23 ML/MIN Protein Corrected Calcium 11.9 MG/DL Lipase 103 U/L Imaging Last Impressions Abdomen/Pelvis CT 06/09/17 1804 Signed Impressions: Service Date/Time: Friday, June 09, 2017 18:40 - CONCLUSION: Stable CT scan of the abdomen and pelvis with no acute intra-abdominal or pelvic process. Bilateral multiple renal calyceal stones nonobstructive. These are unchanged. Stable 7 cm left renal cyst. Moderate amount of residual fecal material in the rectosigmoid vault. Bilateral pars defects L5. Unchanged hypodensities at the junction iliac us and psoas margins in the right inguinal region. Armando Bello MD Chest X-Ray 06/09/17 1515 Signed Impressions: Service Date/Time: Friday, June 09, 2017 15:19 - CONCLUSION: No acute cardiopulmonary abnormality is identified. Tavares Saunders MD Objective Remarks GENERAL: This is a well-nourished, well-developed patient, in no apparent distress. CARDIOVASCULAR: Regular rate and rhythm RESPIRATORY: Clear to auscultation. GASTROINTESTINAL: Abdomen soft, non-tender, nondistended. Normal active bowel sounds MUSCULOSKELETAL: Extremities without clubbing, cyanosis, or edema. NEURO: Alert & Oriented. Moves all ext x4 A/P Problem List: (1) Upper GI bleed ICD Codes: K92.2 - Gastrointestinal hemorrhage, unspecified Status: Acute Plan: Upper GI bleed- Coffee ground emesis. - Patient brought from local rehab center for evaluation of coffee ground emesis and anemia. - per GI EGD (04/12/17)- there was LA class D esophagitis with ulcerations noted ; multiple biopsies were performed. There was mild gastritis in the gastric antrum; multiple biopsies were performed. Duodenal inflammation was found in the bulb and second portion of the duodenum. Retroflexion was performed and was normal. Gastric antrum chemical gastropathy as may be seen with bile reflux or drug therapy. Distal esophagus biopsy with squamous mucosa with acute ulceration. Viral inclusions are not identified. A GMS stain is negative for fungal organisms. - CT scan abdomen and pelvis (06/09/17) reveiwed and reveals: stable CT scan of the abdomen and pelvis with no acute intra-abdominal or pelvic processes. Bilateral multiple renal calyceal stones nonobstructive these are unchanged. Stable 7 cm left renal cyst. Moderate amount of residual fecal material in the rectosigmoid vault. Bilateral pars defects L5. Unchanged hypodensities at the junction iliac US and psoas margins in the right inguinal region. HH last night 9.1/27.5. Rpt. labs pending. Protonix Gtt. Plan for EGD today. - S/P 2 units PRBC - CBC for this AM pending - patient NPO - Plan for EGD this AM - continue protinix drip - continue IVF HTN - continue home medications - monitor trend DM - CKD Bipolar discorder htn dm ckd bipolar disorder hx of gi bleed from ulcers Plan: serial hgb hct dropped 2 units in about 6hrs thus transfuse 2 units of prbc, each over 4 hrs gi consult ppi drip avoid blood thinners/ nsaids monitor fingersticks on d5 1/2 ns at 84cc.hr resume home meds scd (2) CKD (chronic kidney disease) ICD Codes: N18.9 - Chronic kidney disease, unspecified Status: Acute (3) DM (diabetes mellitus) ICD Codes: E11.9 - Type 2 diabetes mellitus without complications Status: Acute Yarelis Brady Jun 10, 2017 10:09
--- NOTE | 2017-06-10 10:50 | HHI.PR ---
Subjective Remarks Patient resting in bed able to awake easily offers no complaints no further vomiting since last night denies nausea, vomiting, feeling light headed or dizzy Objective Vitals Vital Signs Date Time Temp Pulse Resp B/P (MAP) Pulse Ox O2 Delivery O2 Flow Rate FiO2 06/10/17 07:41 98.1 50 20 146/59 (88) 96 06/10/17 03:10 98.0 56 16 146/68 (94) 97 06/09/17 23:14 98.5 63 16 118/66 (83) 98 06/09/17 21:11 88 06/09/17 20:49 98.6 61 17 118/56 (76) 98 06/09/17 18:00 61 17 111/55 (73) 99 Room Air 06/09/17 16:55 95 Room Air 06/09/17 14:29 98.4 72 17 187/84 (118) 99 Room Air I/O 06/09/17 06/09/17 06/09/17 06/10/17 06/10/17 06/10/17 07:00 15:00 23:00 07:00 15:00 23:00 Intake Total 200 ml Output Total 40 ml Balance -40 ml 200 ml Intake IV Total 200 ml Output Emesis 40 ml Result Diagram: 06/09/17 9868 06/10/17 0650 Other Results Laboratory Tests Test 06/09/17 16:40 06/09/17 23:53 06/10/17 06:50 White Blood Count 12.2 TH/MM3 Red Blood Count 4.14 MIL/MM3 Hemoglobin 11.1 GM/DL 9.1 GM/DL Hematocrit 32.8 % 27.5 % Mean Corpuscular Volume 79.4 FL Mean Corpuscular Hemoglobin 26.8 PG Mean Corpuscular Hemoglobin Concent 33.8 % Red Cell Distribution Width 16.1 % Platelet Count 199 TH/MM3 Mean Platelet Volume 8.9 FL Neutrophils (%) (Auto) 87.9 % Lymphocytes (%) (Auto) 5.9 % Monocytes (%) (Auto) 6.1 % Eosinophils (%) (Auto) 0.0 % Basophils (%) (Auto) 0.1 % Neutrophils # (Auto) 10.8 TH/MM3 Lymphocytes # (Auto) 0.7 TH/MM3 Monocytes # (Auto) 0.7 TH/MM3 Eosinophils # (Auto) 0.0 TH/MM3 Basophils # (Auto) 0.0 TH/MM3 CBC Comment DIFF FINAL Differential Comment Prothrombin Time 11.3 SEC Prothromb Time International Ratio 1.0 RATIO Activated Partial Thromboplast Time 25.4 SEC Blood Urea Nitrogen 41 MG/DL 46 MG/DL Creatinine 2.64 MG/DL 2.78 MG/DL Random Glucose 185 MG/DL 102 MG/DL Total Protein 7.6 GM/DL Albumin 4.1 GM/DL Calcium Level 12.2 MG/DL 10.9 MG/DL Alkaline Phosphatase 83 U/L Aspartate Amino Transf (AST/SGOT) 24 U/L Alanine Aminotransferase (ALT/SGPT) 22 U/L Total Bilirubin 0.5 MG/DL Sodium Level 136 MEQ/L 135 MEQ/L Potassium Level 3.6 MEQ/L 3.9 MEQ/L Chloride Level 99 MEQ/L 105 MEQ/L Carbon Dioxide Level 28.5 MEQ/L 21.7 MEQ/L Anion Gap 9 MEQ/L 8 MEQ/L Estimat Glomerular Filtration Rate 25 ML/MIN 23 ML/MIN Protein Corrected Calcium 11.9 MG/DL Lipase 103 U/L Imaging Last Impressions Abdomen/Pelvis CT 06/09/17 1804 Signed Impressions: Service Date/Time: Friday, June 09, 2017 18:40 - CONCLUSION: Stable CT scan of the abdomen and pelvis with no acute intra-abdominal or pelvic process. Bilateral multiple renal calyceal stones nonobstructive. These are unchanged. Stable 7 cm left renal cyst. Moderate amount of residual fecal material in the rectosigmoid vault. Bilateral pars defects L5. Unchanged hypodensities at the junction iliac us and psoas margins in the right inguinal region. Armando Bello MD Chest X-Ray 06/09/17 1515 Signed Impressions: Service Date/Time: Friday, June 09, 2017 15:19 - CONCLUSION: No acute cardiopulmonary abnormality is identified. Tavares Saunders MD Objective Remarks GENERAL: This is a well-nourished, well-developed patient, in no apparent distress. CARDIOVASCULAR: Regular rate and rhythm RESPIRATORY: Clear to auscultation. GASTROINTESTINAL: Abdomen soft, non-tender, nondistended. Normal active bowel sounds MUSCULOSKELETAL: Extremities without clubbing, cyanosis, or edema. NEURO: Alert & Oriented. Moves all ext x4 A/P Problem List: (1) Upper GI bleed ICD Code: K92.2 - Gastrointestinal hemorrhage, unspecified Status: Acute (2) CKD (chronic kidney disease) ICD Code: N18.9 - Chronic kidney disease, unspecified Status: Acute (3) DM (diabetes mellitus) ICD Code: E11.9 - Type 2 diabetes mellitus without complications Status: Acute Assessment and Plan Upper GI bleed- Coffee ground emesis. - Patient brought from local rehab center for evaluation of coffee ground emesis and anemia. - per GI EGD (04/12/17)- there was LA class D esophagitis with ulcerations noted ; multiple biopsies were performed. There was mild gastritis in the gastric antrum; multiple biopsies were performed. Duodenal inflammation was found in the bulb and second portion of the duodenum. Retroflexion was performed and was normal. Gastric antrum chemical gastropathy as may be seen with bile reflux or drug therapy. Distal esophagus biopsy with squamous mucosa with acute ulceration. Viral inclusions are not identified. A GMS stain is negative for fungal organisms. - CT scan abdomen and pelvis (06/09/17) reveiwed and reveals: stable CT scan of the abdomen and pelvis with no acute intra-abdominal or pelvic processes. Bilateral multiple renal calyceal stones nonobstructive these are unchanged. Stable 7 cm left renal cyst. Moderate amount of residual fecal material in the rectosigmoid vault. Bilateral pars defects L5. Unchanged hypodensities at the junction iliac US and psoas margins in the right inguinal region. HH last night 9.1/27.5. Rpt. labs pending. Protonix Gtt. Plan for EGD today. - S/P 2 units PRBC - CBC for this AM pending - patient NPO - Plan for EGD this AM - continue protinix drip - continue IVF HTN - continue home medications which include hydralazine 100 mg by mouth 3 times a day, amlodipine 10 mg by mouth daily - monitor trend DM - Accu-Cheks before meals at bedtime with low-dose sliding scale insulin coverage CKD - Avoid nephrotoxic agents - Continue to monitor renal function Bipolar disorder - Continue home medication regimen patient appears stable DVT prophylaxis with SCDs avoid chemical DVT prophylaxis in light of GI bleed Yarelis Brady Jun 10, 2017 10:50 Erika Montoya DO Jun 10, 2017 23:19
--- NOTE | 2017-06-10 11:29 | EKG ---
Date Performed: 06/09/2017 Time Performed: 17:27:12 PTAGE: 61 years EKG: Sinus rhythm WITH FIRST DEGREE AV BLOCK NONSPECIFIC ST & T-WAVE ABNORMALITY PROLONGED QT INTERVAL ABNORMAL ECG Co mpared to prior tracing no significant change PREVIOUS TRACING : 04/10/2017 21.46 DOCTOR: Roscoe Oconnell Interpretating Date/Time 06/10/2017 11:26:48
[2017-06-10 11:32] VITALS: BP 140/63; PULSE 66; RESP 18; TEMP 98.8; O2SAT 98
[2017-06-10] MEDS: INSULIN ASPART SUPPLEMENTAL SCALE SQ SCH ×3 (12:00→21:00)
[2017-06-10 14:11] LABS: AUTOMATED NEUTROPHIL # 8.3 TH/MM3 (1.8-7.7); BASOPHIL # 0.1 TH/MM3 (0-0.2); BASOPHIL % 0.5 % (0.0-2.0); EOSINOPHIL # 0.1 TH/MM3 (0-0.4); EOSINOPHIL % 0.5 % (0.0-4.0); HEMATOCRIT 31.2 % (39.0-51.0); HEMO FLAGS DIFF FINAL; LYMPH % 13.5 % (9.0-44.0); LYMPHOCYTE # 1.5 TH/MM3 (1.0-4.8); MEAN CELL VOLUME 79.8 FL (80.0-100.0); MEAN CORPUSCULAR HEMOGLOBIN 26.4 PG (27.0-34.0); NEUT % 74.5 % (16.0-70.0); PLATELET COUNT 175 TH/MM3 (150-450); RED BLOOD COUNT 3.91 MIL/MM3 (4.50-5.90); RED CELL DISTRIBUTION WIDTH 16.2 % (11.6-17.2); WHITE BLOOD COUNT 11.1 TH/MM3 (4.0-11.0)
[2017-06-10] MEDS ORDERED: LIDOCAINE HCL 1% PF 5 ML AMPULE ONE (14:39)
[2017-06-10] MEDS ORDERED: PROPOFOL 200 MG/20 ML AMP ONE (14:39)
--- NOTE | 2017-06-10 15:02 | PD.PROCEDR ---
GI Procedure REFERRING PHYSICIAN Aiden PROCEDURE PERFORMED EGD with biopsy INDICATION FOR PROCEDURE Coffee-ground emesis, anemia PROCEDURE: The procedure, risks and benefits were discussed with Mr. Jackson and informed consent was obtained. Anesthesia sedated him with Diprivan. He was placed in the left lateral decubitus position. EGD: The Pentax videoscope was introduced through the oropharynx and advanced to the second portion of the duodenum under direct visualization. Retroflexion was performed in the stomach. FINDINGS: Esophagus the distal esophageal mucosa was friable and erythemic and encompassing the distal esophagus in a circumferential way this is a grade D reflux esophagitis this was biopsied The stomach there was a small hiatal hernia otherwise gastric mucosa was unremarkable with normal limits The duodenum this was unremarkable and within normal limits ESTIMATED BLOOD LOSS: None SPECIMENS REMOVED: Esophageal biopsies COMPLICATIONS: None IMPRESSION: Grade D esophagitis Hiatal hernia PLAN: Await biopsy Recommend PPI Continue with supportive care Repeat EGD in 2 months Greyson Peñaloza MD Jun 10, 2017 15:01
[2017-06-10 15:59] VITALS: BP 153/69; PULSE 63; RESP 18; TEMP 98.3; O2SAT 96
[2017-06-10 20:14] VITALS: BP 117/57; PULSE 54; RESP 18; TEMP 98.4; O2SAT 98
[2017-06-10] MEDS: PANTOPRAZOLE SOD 40 MG DELAYED RELEASE TAB PO SCH (21:12)
[2017-06-11 00:24] VITALS: BP 137/85; PULSE 68; RESP 20; TEMP 98.5; O2SAT 97
[2017-06-11] MEDS: DEXT 5%-NACL 0.45% 1000 ML INJ 1,000 ML IV SCH (01:49)
[2017-06-11 04:08] VITALS: BP 145/68; PULSE 72; RESP 22; TEMP 97.6; O2SAT 100
[2017-06-11 08:00] VITALS: BP 184/85; PULSE 45; RESP 17; TEMP 96.9; O2SAT 98
[2017-06-11] MEDS: INSULIN ASPART SUPPLEMENTAL SCALE SQ SCH ×2 (08:00→12:51)
[2017-06-11 08:40] LABS: AUTOMATED NEUTROPHIL # 4.5 TH/MM3 (1.8-7.7); BASOPHIL % 0.5 % (0.0-2.0); EOSINOPHIL # 0.2 TH/MM3 (0-0.4); EOSINOPHIL % 3.1 % (0.0-4.0); HEMATOCRIT 27.5 % (39.0-51.0); HEMO FLAGS DIFF FINAL; LYMPH % 17.4 % (9.0-44.0); LYMPHOCYTE # 1.2 TH/MM3 (1.0-4.8); MEAN CELL VOLUME 79.7 FL (80.0-100.0); MEAN CORPUSCULAR HEMOGLOBIN 27.1 PG (27.0-34.0); MONO % 10.9 % (0.0-8.0); NEUT % 68.1 % (16.0-70.0); PLATELET COUNT 155 TH/MM3 (150-450); RED BLOOD COUNT 3.45 MIL/MM3 (4.50-5.90); RED CELL DISTRIBUTION WIDTH 16.1 % (11.6-17.2); WHITE BLOOD COUNT 6.7 TH/MM3 (4.0-11.0)
[2017-06-11] MEDS: SODIUM CHLORIDE 0.9% FLUSH 10 ML FLUSH IV FLUSH SCH (09:00)
[2017-06-11 09:18] LABS: BICARBONATE 26.6 MEQ/L (21.0-32.0); POTASSIUM 3.4 MEQ/L (3.5-5.1)
--- NOTE | 2017-06-11 09:21 | HHI.PR ---
Subjective Remarks Patient in nad. Says he feels better Less cough. No n/v/d/c. No pain Objective Vitals Vital Signs Date Time Temp Pulse Resp B/P (MAP) Pulse Ox O2 Delivery O2 Flow Rate FiO2 06/11/17 08:00 96.9 45 17 184/85 (118) 98 06/11/17 04:08 97.6 72 22 145/68 (93) 100 06/11/17 00:24 98.5 68 20 137/85 (102) 97 06/10/17 20:14 98.4 54 18 117/57 (77) 98 06/10/17 15:59 98.3 63 18 153/69 (97) 96 06/10/17 15:05 97.1 57 20 132/63 (86) 94 06/10/17 11:32 98.8 66 18 140/63 (88) 98 06/10/17 09:50 53 I/O 06/10/17 06/10/17 06/10/17 06/11/17 06/11/17 06/11/17 07:00 15:00 23:00 07:00 15:00 23:00 Intake Total 200 ml 300 ml 730 ml 1098 ml Balance 200 ml 300 ml 730 ml 1098 ml Intake Oral 300 ml 220 ml IV Total 200 ml 430 ml 878 ml Other 300 ml # Voids 1 Result Diagram: 06/11/1715 06/11/17 0715 Imaging Last Impressions Abdomen/Pelvis CT 06/09/17 1804 Signed Impressions: Service Date/Time: Friday, June 09, 2017 18:40 - CONCLUSION: Stable CT scan of the abdomen and pelvis with no acute intra-abdominal or pelvic process. Bilateral multiple renal calyceal stones nonobstructive. These are unchanged. Stable 7 cm left renal cyst. Moderate amount of residual fecal material in the rectosigmoid vault. Bilateral pars defects L5. Unchanged hypodensities at the junction iliac us and psoas margins in the right inguinal region. Armando Bello MD Chest X-Ray 06/09/17 5043 Signed Impressions: Service Date/Time: Friday, June 09, 2017 15:19 - CONCLUSION: No acute cardiopulmonary abnormality is identified. Tavares Saunders MD Objective Remarks GENERAL: This is a well-nourished, well-developed patient, in no apparent distress. CARDIOVASCULAR: Regular rate and rhythm RESPIRATORY: Clear to auscultation. GASTROINTESTINAL: Abdomen soft, non-tender, nondistended. Normal active bowel sounds MUSCULOSKELETAL: Extremities without clubbing, cyanosis, or edema. NEURO: Alert & Oriented. Moves all ext x4 A/P Problem List: (1) Upper GI bleed ICD Code: K92.2 - Gastrointestinal hemorrhage, unspecified Status: Acute (2) CKD (chronic kidney disease) ICD Code: N18.9 - Chronic kidney disease, unspecified Status: Acute (3) DM (diabetes mellitus) ICD Code: E11.9 - Type 2 diabetes mellitus without complications Status: Acute Assessment and Plan Upper GI bleed- Coffee ground emesis. - Patient brought from local rehab center for evaluation of coffee ground emesis and anemia. - per GI EGD (04/12/17)- there was LA class D esophagitis with ulcerations noted ; multiple biopsies were performed. There was mild gastritis in the gastric antrum; multiple biopsies were performed. Duodenal inflammation was found in the bulb and second portion of the duodenum. Retroflexion was performed and was normal. Gastric antrum chemical gastropathy as may be seen with bile reflux or drug therapy. Distal esophagus biopsy with squamous mucosa with acute ulceration. Viral inclusions are not identified. A GMS stain is negative for fungal organisms. - CT scan abdomen and pelvis (06/09/17) reveiwed and reveals: stable CT scan of the abdomen and pelvis with no acute intra-abdominal or pelvic processes. Bilateral multiple renal calyceal stones nonobstructive these are unchanged. Stable 7 cm left renal cyst. Moderate amount of residual fecal material in the rectosigmoid vault. Bilateral pars defects L5. Unchanged hypodensities at the junction iliac US and psoas margins in the right inguinal region. HH last night 9.1/27.5. Rpt. labs pending. Protonix Gtt. Plan for EGD today. - S/P 2 units PRBC - CBC for this AM pending S/P EGI with Grade D esophagitis, Hiatal hernia - continue Protonix - continue IVF HTN - continue home medications which include hydralazine 100 mg by mouth 3 times a day, amlodipine 10 mg by mouth daily - monitor trend DM - Accu-Cheks before meals at bedtime with low-dose sliding scale insulin coverage CKD - Avoid nephrotoxic agents - Continue to monitor renal function Bipolar disorder - Continue home medication regimen patient appears stable DVT prophylaxis with SCDs avoid chemical DVT prophylaxis in light of GI bleed Discussed with the patient and the nurse. Kimberli Wolfe MD Jun 11, 2017 09:21
--- NOTE | 2017-06-11 09:25 | HHI.DS ---
Discharge Summary Admission Date Jun 10, 2017 at 01:18 Discharge Date: Jun 11, 2017 Admitting Diagnosis GI bleed, hypercalcemia (1) Upper GI bleed ICD Code: K92.2 - Gastrointestinal hemorrhage, unspecified Status: Acute (2) CKD (chronic kidney disease) ICD Code: N18.9 - Chronic kidney disease, unspecified Status: Acute (3) DM (diabetes mellitus) ICD Code: E11.9 - Type 2 diabetes mellitus without complications Status: Acute Procedures EGD Brief History - From Admission hx from patient, ER communication, NH transfer notes vomiting few days black color of vomit reports of diarrhea as well per patient - 2 days, couple of times does not know color of stool no fever had sob little bit chest pain no abdominal pain CBC/BMP: 06/11/17 0715 06/11/17 0715 Significant Findings Laboratory Tests Test 06/09/17 16:40 06/09/17 23:53 06/10/17 06:50 06/10/17 13:34 White Blood Count 12.2 TH/MM3 (4.0-11.0) 11.1 TH/MM3 (4.0-11.0) Red Blood Count 4.14 MIL/MM3 (4.50-5.90) 3.91 MIL/MM3 (4.50-5.90) Hemoglobin 11.1 GM/DL (13.0-17.0) 9.1 GM/DL (13.0-17.0) 10.3 GM/DL (13.0-17.0) Hematocrit 32.8 % (39.0-51.0) 27.5 % (39.0-51.0) 31.2 % (39.0-51.0) Mean Corpuscular Volume 79.4 FL (80.0-100.0) 79.8 FL (80.0-100.0) Mean Corpuscular Hemoglobin 26.8 PG (27.0-34.0) 26.4 PG (27.0-34.0) Neutrophils (%) (Auto) 87.9 % (16.0-70.0) 74.5 % (16.0-70.0) Lymphocytes (%) (Auto) 5.9 % (9.0-44.0) Neutrophils # (Auto) 10.8 TH/MM3 (1.8-7.7) 8.3 TH/MM3 (1.8-7.7) Lymphocytes # (Auto) 0.7 TH/MM3 (1.0-4.8) Blood Urea Nitrogen 41 MG/DL (7-18) 46 MG/DL (7-18) Creatinine 2.64 MG/DL (0.60-1.30) 2.78 MG/DL (0.60-1.30) Random Glucose 185 MG/DL (74-106) Calcium Level 12.2 MG/DL (8.5-10.1) 10.9 MG/DL (8.5-10.1) Estimat Glomerular Filtration Rate 25 ML/MIN (>89) 23 ML/MIN (>89) Protein Corrected Calcium 11.9 MG/DL (8.5-10.1) Sodium Level 135 MEQ/L (136-145) Monocytes (%) (Auto) 11.0 % (0.0-8.0) Monocytes # (Auto) 1.2 TH/MM3 (0-0.9) Test 06/11/17 07:15 Red Blood Count 3.45 MIL/MM3 (4.50-5.90) Hemoglobin 9.3 GM/DL (13.0-17.0) Hematocrit 27.5 % (39.0-51.0) Mean Corpuscular Volume 79.7 FL (80.0-100.0) Monocytes (%) (Auto) 10.9 % (0.0-8.0) Blood Urea Nitrogen 46 MG/DL (7-18) Creatinine 2.66 MG/DL (0.60-1.30) Random Glucose 129 MG/DL (74-106) Calcium Level 11.1 MG/DL (8.5-10.1) Sodium Level 133 MEQ/L (136-145) Potassium Level 3.4 MEQ/L (3.5-5.1) Estimat Glomerular Filtration Rate 24 ML/MIN (>89) Imaging Last Impressions Abdomen/Pelvis CT 06/09/17 0709 Signed Impressions: Service Date/Time: Friday, June 09, 2017 18:40 - CONCLUSION: Stable CT scan of the abdomen and pelvis with no acute intra-abdominal or pelvic process. Bilateral multiple renal calyceal stones nonobstructive. These are unchanged. Stable 7 cm left renal cyst. Moderate amount of residual fecal material in the rectosigmoid vault. Bilateral pars defects L5. Unchanged hypodensities at the junction iliac us and psoas margins in the right inguinal region. Armando Bello MD Chest X-Ray 06/09/17 8022 Signed Impressions: Service Date/Time: Friday, June 09, 2017 15:19 - CONCLUSION: No acute cardiopulmonary abnormality is identified. Tavares Saunders MD PE at Discharge GENERAL: This is a well-nourished, well-developed patient, in no apparent distress. CARDIOVASCULAR: Regular rate and rhythm RESPIRATORY: Clear to auscultation. GASTROINTESTINAL: Abdomen soft, non-tender, nondistended. Normal active bowel sounds MUSCULOSKELETAL: Extremities without clubbing, cyanosis, or edema. NEURO: Alert & Oriented. Moves all ext x4 Hospital Course Upper GI bleed- Coffee ground emesis. - Patient brought from local rehab center for evaluation of coffee ground emesis and anemia. - per GI EGD (04/12/17)- there was LA class D esophagitis with ulcerations noted ; multiple biopsies were performed. There was mild gastritis in the gastric antrum; multiple biopsies were performed. Duodenal inflammation was found in the bulb and second portion of the duodenum. Retroflexion was performed and was normal. Gastric antrum chemical gastropathy as may be seen with bile reflux or drug therapy. Distal esophagus biopsy with squamous mucosa with acute ulceration. Viral inclusions are not identified. A GMS stain is negative for fungal organisms. - CT scan abdomen and pelvis (06/09/17) reveiwed and reveals: stable CT scan of the abdomen and pelvis with no acute intra-abdominal or pelvic processes. Bilateral multiple renal calyceal stones nonobstructive these are unchanged. Stable 7 cm left renal cyst. Moderate amount of residual fecal material in the rectosigmoid vault. Bilateral pars defects L5. Unchanged hypodensities at the junction iliac US and psoas margins in the right inguinal region. HH last night 9.1/27.5. Rpt. labs pending. Protonix Gtt. Plan for EGD today. - S/P 2 units PRBC - CBC for this AM pending S/P EGI with Grade D esophagitis, Hiatal hernia - continue Protonix - continue IVF HTN - continue home medications which include hydralazine 100 mg by mouth 3 times a day, amlodipine 10 mg by mouth daily - monitor trend DM - Accu-Cheks before meals at bedtime with low-dose sliding scale insulin coverage CKD - Avoid nephrotoxic agents - Continue to monitor renal function Bipolar disorder - Continue home medication regimen patient appears stable DVT prophylaxis with SCDs avoid chemical DVT prophylaxis in light of GI bleed Improved discharged to SNF in stable condition to f/u as OP with PCP and consultants Pt Condition on Discharge: Good Discharge Disposition: Discharge Home Discharge Time: > 30 minutes Discharge Instructions DIET: Follow Instructions for: Heart Healthy Diet Activities you can perform: Regular-No Restrictions Follow up Referrals: Gastroenterology - 2 Weeks with Greyson Peñaloza MD PCP Follow-up - 2-3 Days Continued Medications: Amlodipine (Norvasc) 10 Mg Tab 10 MG PO DAILY for Blood Pressure Management, #30 TAB 0 Refills Aripiprazole (Aripiprazole) 5 Mg Tab 2.5 MG PO DAILY, #30 TAB 0 Refills B-Complex W/ C & Folic Acid (Maryellen-Jennifer) 1 Tab 1 TAB PO DAILY for Nutritional Supplement, TAB Cholecalciferol (D-2000 Maximum Strength) 2,000 Unit Tab 4000 UNITS PO DAILY for Nutritional Supplement, #30 TAB 0 Refills Escitalopram (Lexapro) 10 Mg Tab 10 MG PO DAILY, #30 TAB 0 Refills Hydralazine (Hydralazine) 100 Mg Tab 100 MG PO TID for Blood Pressure Management, TAB 0 Refills Take with meals Pantoprazole (Protonix) 40 Mg Tab 40 MG PO BID for Reflux, #60 TAB 0 Refills Promethazine Inj (Phenergan Inj) 25 Mg/Ml Inj 25 MG IM Q8HR PRN for NAUSEA OR VOMITING, VIAL Promethazine Supp (Promethazine Supp) 25 Mg Supp 25 MG RECTAL Q8HR PRN for NAUSEA OR VOMITING, SUPP 0 Refills Sennosides-Docusate Sodium (Senna Plus 8.6-50 mg) 1 Tab Tab 1 TAB PO BID for Prevent Constipation, #60 TAB Kimberli Wolfe MD Jun 11, 2017 09:25
--- NOTE | 2017-06-11 09:25 | HHI.DCPOC ---
Discharge Care Plan Goals to Promote Your Health * To prevent worsening of your condition and complications * To maintain your health at the optimal level Directions to Meet Your Goals Take your medications as prescribed Follow your dietary instruction Follow activity as directed Keep your appointments as scheduled Take your immunizations and boosters as scheduled If your symptoms worsen call your PCP, if no PCP go to Urgent Care Center or Emergency Room Smoking is Dangerous to Your Health. Avoid second hand smoke Call the 24-hour hour crisis hotline for domestic abuse at Kimberli Wolfe MD Jun 11, 2017 09:25
[2017-06-11] MEDS: ARIPiprazole 5 MG TAB PO SCH (09:29)
[2017-06-11] MEDS: ESCITALOPRAM OXALATE 10 MG TAB PO SCH (09:29)
[2017-06-11] MEDS: hydrALAZINE HCL 100 MG TAB PO SCH ×2 (09:29→12:50)
[2017-06-11] MEDS: VITAMIN B CMPLX/VITC/FOLIC AC CAP PO SCH (09:30)
[2017-06-11] MEDS ORDERED: ENALAPRILAT 2.5 MG/2 ML VIAL IV PUSH PRN (09:30)
[2017-06-11] MEDS: PANTOPRAZOLE SOD 40 MG DELAYED RELEASE TAB PO SCH (09:30)
--- NOTE | 2017-06-11 10:28 | HHI.GIFU ---
Subjective Remarks Resting in bed. No further vomiting. Denies nausea or abdominal pain. Did not get breakfast tray this morning. Notified nurse so she could order tray. (Shasha Durham) Objective Vitals I&O Vital Signs Date Time Temp Pulse Resp B/P (MAP) Pulse Ox O2 Delivery O2 Flow Rate FiO2 06/11/17 08:00 96.9 45 17 184/85 (118) 98 06/11/17 04:08 97.6 72 22 145/68 (93) 100 06/11/17 00:24 98.5 68 20 137/85 (102) 97 06/10/17 20:14 98.4 54 18 117/57 (77) 98 06/10/17 15:59 98.3 63 18 153/69 (97) 96 06/10/17 15:05 97.1 57 20 132/63 (86) 94 06/10/17 11:32 98.8 66 18 140/63 (88) 98 I/O 06/10/17 06/10/17 06/10/17 06/11/17 06/11/17 06/11/17 07:00 15:00 23:00 07:00 15:00 23:00 Intake Total 200 ml 300 ml 730 ml 1098 ml Balance 200 ml 300 ml 730 ml 1098 ml Intake Oral 300 ml 220 ml IV Total 200 ml 430 ml 878 ml Other 300 ml # Voids 1 Laboratory Laboratory Tests Test 06/10/17 13:34 06/11/17 07:15 White Blood Count 11.1 6.7 Red Blood Count 3.91 3.45 Hemoglobin 10.3 9.3 Hematocrit 31.2 27.5 Mean Corpuscular Volume 79.8 79.7 Mean Corpuscular Hemoglobin 26.4 27.1 Mean Corpuscular Hemoglobin Concent 33.0 34.0 Red Cell Distribution Width 16.2 16.1 Platelet Count 175 155 Mean Platelet Volume 9.1 9.0 Neutrophils (%) (Auto) 74.5 68.1 Lymphocytes (%) (Auto) 13.5 17.4 Monocytes (%) (Auto) 11.0 10.9 Eosinophils (%) (Auto) 0.5 3.1 Basophils (%) (Auto) 0.5 0.5 Neutrophils # (Auto) 8.3 4.5 Lymphocytes # (Auto) 1.5 1.2 Monocytes # (Auto) 1.2 0.7 Eosinophils # (Auto) 0.1 0.2 Basophils # (Auto) 0.1 0.0 CBC Comment DIFF FINAL DIFF FINAL Differential Comment Blood Urea Nitrogen 46 Creatinine 2.66 Random Glucose 129 Calcium Level 11.1 Sodium Level 133 Potassium Level 3.4 Chloride Level 98 Carbon Dioxide Level 26.6 Anion Gap 8 Estimat Glomerular Filtration Rate 24 Imaging Last Impressions Abdomen/Pelvis CT 06/09/17 1804 Signed Impressions: Service Date/Time: Friday, June 09, 2017 18:40 - CONCLUSION: Stable CT scan of the abdomen and pelvis with no acute intra-abdominal or pelvic process. Bilateral multiple renal calyceal stones nonobstructive. These are unchanged. Stable 7 cm left renal cyst. Moderate amount of residual fecal material in the rectosigmoid vault. Bilateral pars defects L5. Unchanged hypodensities at the junction iliac us and psoas margins in the right inguinal region. Armando Bello MD Chest X-Ray 06/09/17 1515 Signed Impressions: Service Date/Time: Friday, June 09, 2017 15:19 - CONCLUSION: No acute cardiopulmonary abnormality is identified. Tavares Saunders MD Physical Exam HEENT: Normocephalic; atraumatic; no jaundice. CHEST: Resp. even/unlabored, shallow. CTA CARDIAC: RRR ABDOMEN: Soft, nondistended, nontender; no hepatosplenomegaly; bowel sounds are present in all four quadrants. EXTREMITIES: No clubbing, cyanosis, or edema. SKIN: Skin w/d CALL PERSON: No focal deficits; alert and oriented times three. (Shasha Durham [facility]) Assessment and Plan Plan ASSESSMENT: - Upper GIB, Coffee ground emesis. Brought from local rehab center for evaluation of coffee ground emesis and anemia. Pt poor historian, but denies any other GI symptoms. he was seen earlier this year and underwent EGD (04/12/17)---> there was LA class D esophagitis with ulcerations noted; multiple biopsies were performed. There was mild gastritis in the gastric antrum; multiple biopsies were performed. Duodenal inflammation was found in the bulb and second portion of the duodenum. Retroflexion was performed and was normal. Gastric antrum chemical gastropathy as may be seen with bile reflux or drug therapy. Distal esophagus biopsy with squamous mucosa with acute ulceration. Viral inclusions are not identified. A GMS stain is negative for fungal organisms. CT scan abdomen and pelvis ()---> stable CT scan of the abdomen and pelvis with no acute intra-abdominal or pelvic processes. Bilateral multiple renal calyceal stones nonobstructive these are unchanged. Stable 7 cm left renal cyst. Moderate amount of residual fecal material in the rectosigmoid vault. Bilateral pars defects L5. Unchanged hypodensities at the junction iliac US and psoas margins in the right inguinal region. S/P EGD (06/10/17)---> Grade D esophagitis, Hiatal hernia. Pathology pending. PPI. HH .11/16.. - Anemia, acute blood loss. HH stable .11/16.. - Grade D Esophagitis, HH. Pathology pending. PPI - HTN, DM, CKD, Bipolar d/o per attending. PLAN: - MARIANN - Await pathology - Cont. PPI - Rpt EGD in 2 months - FU WILLIE 2 weeks - Pt seen and examined by Dr. Peñaloza and myself and this note is written on his behalf (Shasha Durham) Physician Comments Patient seen and examined Agree with above Continue with current supportive care Monitor labs Follow-up with GI post discharge (Greyson Peñaloza MD) Shasha Durham Jun 11, 2017 10:28 Greyson Peñaloza MD Jun 11, 2017 21:05
[2017-06-11 12:00] VITALS: BP 133/63; PULSE 47; RESP 17; TEMP 97.4; O2SAT 100
== END 2017-06-11 14:01 | DRG 378 ==
LOC: NEPE 13:16 → NEDA 19:23 → NEPGCP 20:38 → OBSVTOIN 06-10 01:18 → N07A 06-10 22:15
PROVIDERS: ADMIT Hospitalist; ATTEND Hospitalist
PROC: 0DB38ZX Excision of Lower Esophagus, Via Natural or Artificial Opening Endoscopic, Diagnostic (ICD-10-PCS; 2017-06-10)
PROC: 30233N1 Transfusion of Nonautologous Red Blood Cells into Peripheral Vein, Percutaneous Approach (ICD-10-PCS; principal; 2017-06-10 14:35)
DX: K92.0 Hematemesis (principal); D62 Acute posthemorrhagic anemia; F03.90 Unspecified dementia, unspecified severity, without behavioral disturbance, psychotic disturbance, mood disturbance, and anxiety; E83.52 Hypercalcemia; K21.0 Gastro-esophageal reflux disease with esophagitis; F41.9 Anxiety disorder, unspecified; N28.1 Cyst of kidney, acquired; F31.9 Bipolar disorder, unspecified; H91.90 Unspecified hearing loss, unspecified ear; K44.9 Diaphragmatic hernia without obstruction or gangrene
CPT/HCPCS: 36415; 71010; 74176; 80048; 80053; 82948; 83690; 85014; 85018; 85025; 85610; 85730; 86850; 86900; 86901; 86920; 88305; 88312; 93005; C9113; J1815; J2405; J7030; Q9963